=== PATIENT | female | born 1960 | race Caucasian/White ===

== ENCOUNTER → 2018-11-18 09:40 | Outpatient (REF) | payer OTHER, SELFPAY | LOC: LAB 09:40 | PROVIDERS: PCP Nurse Practitioner Family; Visit Provider Nurse Practitioner Family | DX: R31.9 Hematuria, unspecified (principal); R10.9 Unspecified abdominal pain | CPT/HCPCS: 87086 ==

== ENCOUNTER → 2020-10-31 09:04 | Outpatient (CLI) | payer BC, SELFPAY ==
--- NOTE | 2020-10-31 | DI.US.S_ITS ---
PROCEDURE: US RENAL COMPLETE INDICATIONS: FLANK PAIN TECHNIQUE: Real-time scanning was performed of the kidneys and bladder, with image documentation. COMPARISON: None. FINDINGS: Kidneys: Kidneys are normal in size. Right kidney measures 10.4 cm long; left kidney measures 11.7 cm long. Right renal cortical thickness is 1.5 cm; left renal cortical thickness is 1.5 cm. Renal cortical echotexture is normal. No hydronephrosis or nephrolithiasis. No suspicious solid mass lesions. Bladder: Pre-void bladder volume is 332 mL. Post-void residual is 26 mL. Pre-void images demonstrate no intraluminal masses or stones. On pre-void images, both ureteral jets are noted with color Doppler interrogation. (Of note, ureteral jets may not be detectable in up to 25% of cases due to insufficient differences in specific gravity between ureteral and bladder urine). Miscellaneous: No free pelvic fluid. This study is highly limited by body habitus and bowel gas. IMPRESSION: No hydronephrosis or shadowing stones can be seen. Mild to moderate postvoid residual, 26 cc. Dictated by: Kuldip Holder M.D. on 10/31/2020 at 8:49 Approved by: Kuldip Hloder M.D. on 10/31/2020 at 8:50
== END ==
PROVIDERS: PCP Nurse Practitioner Family; Referring Provider Nurse Practitioner Family; Visit Provider Nurse Practitioner Family
DX: R10.9 Unspecified abdominal pain (principal)
CPT/HCPCS: 76770

== ENCOUNTER 2021-02-09 19:17 | Inpatient (IN) | payer BC, SELFPAY ==
[2021-02-09] VITALS (15 sets, daily range): BP systolic 91–142; BP diastolic 50–78; PULSE 90–113; RESP 20–24; TEMP 37.2–38.8; O2SAT 92–98; BMI 40.4; BMI 41.2
--- NOTE | 2021-02-09 19:25 | DI.US.S_ITS ---
PROCEDURE: US ABDOMEN LIMITED INDICATIONS: SEVERE EPIGASTRIC AND RIGHT UPPER QUADRANT PAIN TECHNIQUE: Real-time focused scanning was performed of the right upper quadrant, with image documentation. COMPARISON: None. FINDINGS: The liver is increased in echogenicity consistent with fatty infiltration with a few hypoechoic indistinct regions along the gallbladder fossa compatible with focal fatty sparing. The largest region measures up to 2.8 cm without internal vascularity on color Doppler interrogation. Gallbladder is distended with 2 small mobile stones. No wall thickening or pericholecystic fluid. No intra or extrahepatic biliary ductal dilatation. The visualized common bile duct measures up to 0.5 cm. Evaluation of the pancreas is limited by bowel gas. IMPRESSION: 1. Cholelithiasis and distention of the gallbladder without wall thickening, pericholecystic fluid, or sonographic Christina's sign to suggest cholecystitis. 2. Increased hepatic echogenicity compatible with steatosis with probable areas of focal sparing along the gallbladder fossa. Dictated by: Leighton Mackenzie M.D. on 02/09/2021 at 20:49 Approved by: Leighton Mackenzie M.D. on 02/09/2021 at 20:54
--- NOTE | 2021-02-09 19:25 | DI.RAD.S_ITS ---
PROCEDURE: XR CHEST 1V INDICATIONS: fever, sepsis TECHNIQUE: One view of the chest was acquired. COMPARISON: [facility], , CHEST 2 VIEW, 06/21/2017, 11:08. FINDINGS: Surgical changes and devices: None. Lungs and pleura: There are confluent left perihilar airspace opacities consistent with consolidation. Right lung is clear. No pleural effusions or pneumothorax. Mediastinum: Mediastinal contours appear normal. Heart size is normal. Bones and chest wall: No suspicious bony lesions. Overlying soft tissues appear unremarkable. IMPRESSION: 1. Left perihilar consolidation consistent with pneumonia given clinical history. Dictated by: Leighton Mackenzie M.D. on 02/09/2021 at 20:54 Approved by: Leighton Mackenzie M.D. on 02/09/2021 at 20:55
[2021-02-09] MEDS: LACTATED RINGERS 541.94 ML IV (19:56)
[2021-02-09 19:58] LABS: Add Manual Diff / Slide Review NO; Basophils Absolute Auto 100 /uL (0-100); Basophils Percent Auto 0.4 % (0-2); Eosinophils Absolute Auto 0 /uL (0-450); Hematocrit 35.1 % (36-46); Hemoglobin 11.8 g/dL (12.0-16.0); Lymphocytes Absolute Auto 700 /uL (1100-4500); Mean Corpuscular HGB Conc 33.6 % (30-36); Mean Corpuscular Volume 89.1 fL (80-100); Monocytes Absolute Auto 700 /uL (0-900); Neutrophils Absolute Auto 16100 /uL (1500-7000); Neutrophils Percent Auto 91.6 % (50-75); Platelet Count 223 X10^3/uL (150-400); Red Blood Cell Count 3.94 X10^6/uL (4.0-5.2); Red Cell Distribution Width 13.3 % (11.6-14.8); White Blood Cell Count 17.5 X10^3/uL (4.5-11.0)
[2021-02-09 20:07] LABS: Lactate (Lactic Acid) 1.1 mmol/L (0.7-2.1)
[2021-02-09 20:09] LABS: Alanine Aminotransferase 25 IU/L (<35); Albumin 3.6 g/dL (3.5-5.0); Albumin Globulin Ratio 1.2 (1.0-2.8); Alkaline Phosphatase 95 U/L (38-126); Aspartate Aminotransferase 25 IU/L (14-36); BUN Creatinine Ratio 17.9 (6-22); Bilirubin Total 0.5 mg/dL (0.2-1.3); Blood Urea Nitrogen 22 mg/dL (7-17); Calcium 8.9 mg/dL (8.4-10.2); Carbon Dioxide 27 mmol/L (22-32); Chloride 100 mmol/L (98-107); Creatine Kinase 133 U/L (30-135); Estimated Glomerular Filt Rate 44.7 mL/min (>60); Globulin 3.1 g/dL (1.7-4.1); Glucose 150 mg/dL (70-100); HEMOLYSIS < 15 (0-50); Lipase 23 U/L (23-300); Potassium 3.4 mmol/L (3.4-5.1); Sodium 135 mmol/L (137-145); Total Protein 6.7 g/dL (6.3-8.2)
--- NOTE | 2021-02-09 20:10 | ED_ITS ---
HPI - Fever General Chief Complaint: Fever Stated Complaint: states, fever Time Seen by Provider: 02/09/21 19:22 Source: patient Mode of arrival: Wheelchair Limitations: no limitations History of Present Illness HPI Narrative: 60-year-old female former smoker with history of hypertension presents with family and a chief complaint of a few days of increasing fever, chills and right-sided pain. She states she had a temporal measurement of 105 at home and in would oral temp of 101?. She took Tylenol about 1 hour ago. She has had nausea and vomiting but denies any constipation, diarrhea for urinary complaints such as dysuria, frequency or urgency. She states her pain is worse when she moves and improves with rest. She denies any obvious provocation with eating. She denies any radiation of her pain. She is not dizzy nor weak or lightheaded. She denies any dysuria, frequency or urgency. She denies any exposure to persons with known to have COVID. Related Data Home Medications Medication Instructions Recorded Confirmed VITAMIN D (Vitamin D3) 1,000 units PO #0 tab 08/17/16 ascorbic acid (vitamin C) 500 mg PO QDAY #0 tab 08/17/16 ibuprofen [Advil] 200 mg PO Q4HP PRN #0 tab 08/17/16 lisinopril 10 mg PO QDAY #30 tab 08/17/16 Previous Rx's Medication Instructions Recorded cyclobenzaprine 10 mg PO TIDP PRN #21 tab 08/17/16 naproxen [Naprosyn] 500 mg PO BIDCC #30 tab 08/17/16 Allergies Allergy/AdvReac Type Severity Reaction Status Date / Time Penicillins [PENICILLINS] Allergy Unknown Unverified 02/16/18 11:48 Review of Systems Constitutional Constitutional: Reports chills, Denies fatigue, Reports fever(s), Denies frequent falls, Denies lethargy and Denies weakness Eyes Eyes: Denies change in vision, Denies eye discharge, Denies irritation and Denies loss of vision ENT Ears, Nose, Mouth, and Throat: Denies change in voice, Denies dizziness, Denies neck pain, Denies sore throat and Denies throat swelling Cardiovascular Cardiovascular: Denies chest pain, Denies irregular heart rhythm, Denies lightheadedness, Denies palpitations, Denies dyspnea, Denies dyspnea on exertion and Denies orthopnea Respiratory Respiratory: Denies cough, Denies dyspnea, Denies dyspnea on exertion and Denies wheezing Gastrointestinal Gastrointestinal: Reports abdominal pain, Denies change in bowel habits, Denies diarrhea, Reports nausea and Reports vomiting Musculoskeletal Musculoskeletal: Denies neck pain and Denies numbness Integumentary/Breasts Skin/Breast: Denies pruritus, Denies erythema, Denies rash and Denies wounds Neurologic Neurologic: Denies behavioral changes, Denies confusion, Denies dizziness, Denies frequent falls, Denies loss of vision, Denies numbness and Denies weakness Psychiatric Psychiatric: Denies anxiety, Denies behavioral changes, Denies confusion, Denies depression, Denies homicidal ideation and Denies suicidal ideation Endocrine Endocrine: Denies fatigue, Denies flushing and Denies palpitations Hematologic/Lymphatic Hematologic/Lymphatic: Denies easy bruising Allergic/Immunologic Allergic/Immunologic: Denies urticaria, Denies throat swelling and Denies wheezing Patient History Social History household members: family Smoking Status: Former smoker Smoking Status: Former smoker alcohol intake frequency: 0-2 drinks per day Substance Use Type: does not use Exam Narrative Exam Narrative: GENERAL: [60] year old patient appears stated age. Well- nourished, well-developed patient, in obvious distress, significant pain in the right upper quadrant. HEAD: Atraumatic. Normocephalic. EYES: Pupils equal round and reactive. Extraocular motions intact. No scleral icterus. No injection or drainage. ENT: Nose without bleeding, purulent drainage. Throat without erythema, tonsillar hypertrophy or exudate. Airway patent. NECK: Trachea midline. Non tender CARDIOVASCULAR: Tachycardic, but regular rhythm without murmurs, gallops, or rubs. RESPIRATORY: Clear to auscultation. Breath sounds equal bilaterally. No wheezes, rales, or rhonchi. GASTROINTESTINAL: Abdomen soft, severe pain in epigastrum and RUQ, nondistended. EXTREMITIES: No edema or joint tenderness. BACK: Nontender without deformity or crepitance. No flank tenderness. NEURO: AOx3. SKIN: No rash or erythema of visible areas Initial Vital Signs Initial Vital Signs: Vital Signs Temperature 99.0 F 02/09/21 19:25 Pulse Rate 113 H 02/09/21 19:25 Respiratory Rate 24 02/09/21 19:25 Blood Pressure 135/61 02/09/21 19:25 Pulse Oximetry 93 02/09/21 19:25 Course Orders Ordered: ED Orders 02/09/21 19:25 US abdomen limited Stat XR chest 1V Stat Urinalysis and Microscopic Stat EKG-12 Lead Stat 02/09/21 19:30 COVID19 - ADMIT (CARDIOLOGY TECHNICIAN swab/PCR) Stat 02/09/21 19:45 Complete Blood Count AUTO DIFF Stat Comprehensive Metabolic Panel Stat Lactate (Lactic Acid) Stat Lipase Stat Procalcitonin Stat Troponin & CK Cardiac Panel Stat 02/09/21 20:21 CT abdomen pelvis w con Stat 02/09/21 20:30 Blood Culture Stat Acetaminophen (Acetaminophen 325 Mg Tablet) 650 mg PO Q6HR PRN PRN Reason: Fever/Mild Pain (1-3) Hydrocodone Bitart/Acetaminophen (Hydrocodone/Acet 5/325 Tablet) 2 tab PO Q4HR PRN PRN Reason: Pain, Severe (7-10) Al Hydrox/Mg Hydrox/Simethicone (Mag Hydrox/Alum/Simeth 30 Ml Udc) 30 ml PO Q6HR PRN PRN Reason: Dyspepsia Enoxaparin Sodium (Enoxaparin 40 Mg/0.4 Ml Syringe) 40 mg SUBCUT DAILY [facility] Lactated Ringer's (Lactated Ringers) 1,000 mls @ 150 mls/hr IV CONT [facility] Ceftriaxone Sodium/Dextrose (Rocephin) 1 gm in 50 mls @ 100 mls/hr IV Q24H [facility] Azithromycin 500 mg/ Dextrose 250 mls @ 250 mls/hr IV Q24H [facility] Lisinopril (Lisinopril 10 Mg Tablet) 10 mg PO DAILY [facility] Morphine Sulfate (Morphine 2 Mg/Ml Inj) 2 mg IV Q4HR PRN PRN Reason: Pain, Moderate (4-6) Naloxone HCl (Naloxone 0.4 Mg/Ml Vial) 0.2 mg IV Q2MIN PRN PRN Reason: Opiate Reversal Ondansetron HCl (Ondansetron 4 Mg/2 Ml Inj) 4 mg IV Q8HR PRN PRN Reason: Nausea And Vomiting Discontinued Medications Lactated Ringer's (Lactated Ringers) 1,625.82 mls @ 541.94 mls/hr 30 ml/kg infuse over 3 hr (1625.82 ml) IV NOW ONE Stop: 02/09/21 22:24 Last Admin: 02/09/21 19:56 Dose: 541.94 mls/hr Documented by: ALEJANDRA Levofloxacin (Levaquin) 750 mg in 150 mls @ 100 mls/hr IV NOW ONE Stop: 02/09/21 21:33 Last Admin: 02/09/21 21:51 Dose: 100 mls/hr Documented by: KAUSHAL Metronidazole (Flagyl) 500 mg in 100 mls @ 100 mls/hr IV NOW ONE Stop: 02/09/21 21:09 Last Infusion: 02/09/21 21:48 Dose: 0 mls/hr Documented by: Admin: 02/09/21 20:32 Dose: 100 mls/hr Documented by: OLEG Vital Signs Vital signs: Vital Signs - 8 hr 02/09/21 19:25 02/09/21 19:34 02/09/21 20:00 Temperature 99.0 F Pulse Rate 113 H 99 H 97 H Respiratory Rate 24 Blood Pressure 135/61 Pulse Oximetry 93 92 94 02/09/21 20:30 02/09/21 20:53 02/09/21 21:00 Temperature Pulse Rate 93 H 92 H 93 H Respiratory Rate Blood Pressure 107/54 L 91/50 L Pulse Oximetry 95 96 97 02/09/21 21:10 02/09/21 21:13 02/09/21 21:30 Temperature Pulse Rate 90 90 95 H Respiratory Rate 20 Blood Pressure 103/52 L 110/58 L 118/78 Pulse Oximetry 97 98 97 02/09/21 21:57 02/09/21 22:00 02/09/21 22:25 Temperature 100.6 F H 100.2 F H Pulse Rate 90 Respiratory Rate Blood Pressure 123/70 Pulse Oximetry 97 02/09/21 22:30 Temperature Pulse Rate 94 H Respiratory Rate Blood Pressure 142/68 H Pulse Oximetry 97 MDM - Fever Lab Data Result diagrams: 02/09/21 19:45 02/09/21 19:45 Labs: Lab Results 02/09/21 02/09/21 02/09/21 Range/Units 19:30 19:45 19:45 WBC 17.5 H (4.5-11.0) X10^3/uL RBC 3.94 L (4.0-5.2) X10^6/uL Hgb 11.8 L (12.0-16.0) g/dL Hct 35.1 L (36-46) % MCV 89.1 (80-100) fL MCH 30.0 (26-34) PG MCHC 33.6 (30-36) % RDW 13.3 (11.6-14.8) % Plt Count 223 (150-400) X10^3/uL Neut % (Auto) 91.6 H (50-75) % Lymph % (Auto) 4.0 L (25-40) % Jones % (Auto) 4.0 (3-14) % Eos % (Auto) 0.0 L (2-4) % Baso % (Auto) 0.4 (0-2) % Neut # (Auto) 93745 H (6089-3815) /uL Lymph # (Auto) 700 L (5073-9423) /uL Jones # (Auto) 700 (0-900) /uL Eos # (Auto) 0 (0-450) /uL Baso # (Auto) 100 (0-100) /uL Sodium 135 L (137-145) mmol/L Potassium 3.4 (3.4-5.1) mmol/L Chloride 100 (98-107) mmol/L Carbon Dioxide 27 (22-32) mmol/L BUN 22 H (7-17) mg/dL Creatinine 1.23 H (0.52-1.04) mg/dL Estimated GFR 44.7 L (>60) mL/min BUN/Creatinine Ratio 17.9 (6-22) Glucose 150 H (70-100) mg/dL Lactate (0.7-2.1) mmol/L Calcium 8.9 (8.4-10.2) mg/dL Total Bilirubin 0.5 (0.2-1.3) mg/dL AST 25 (14-36) IU/L ALT 25 (<35) IU/L Alkaline Phosphatase 95 (38-126) U/L Total Creatine Kinase 133 (30-135) U/L CK-MB (CK-2) < 0.22 (<2.37) ng/mL CK-MB (CK-2) Rel Index 0.2 L (1.5-5.0) % Troponin I < 0.012 (0.01-0.034) ng/mL Total Protein 6.7 (6.3-8.2) g/dL Albumin 3.6 (3.5-5.0) g/dL Globulin 3.1 (1.7-4.1) g/dL Albumin/Globulin Ratio 1.2 (1.0-2.8) Lipase 23 (23-300) U/L Procalcitonin 4.97 H (<0.5) ng/mL Urine Color Urine Appearance Urine pH (4.5-8.0) Ur Specific Pierce (1.000-1.035) Urine Protein (Negative) Urine Glucose (UA) (Negative) g/dL Urine Ketones (NEGATIVE) Urine Occult Blood (Negative) Urine Nitrate (Negative) Urine Bilirubin (NEGATIVE) Urine Urobilinogen (0.2) E.U./dL Ur Leukocyte Esterase (NEGATIVE) Urine RBC (0-5/HPF) Urine WBC (0-5/HPF) Ur Squamous Epith Cells (0-5/HPF) Amorphous Sediment Urine Bacteria (None) Hyaline Casts (None) Urine Mucus (Negative) Ur Culture Indicated? SARS-CoV-2 (PCR) Negative (Negative) 02/09/21 02/09/21 Range/Units 19:45 21:45 WBC (4.5-11.0) X10^3/uL RBC (4.0-5.2) X10^6/uL Hgb (12.0-16.0) g/dL Hct (36-46) % MCV (80-100) fL MCH (26-34) PG MCHC (30-36) % RDW (11.6-14.8) % Plt Count (150-400) X10^3/uL Neut % (Auto) (50-75) % Lymph % (Auto) (25-40) % Jones % (Auto) (3-14) % Eos % (Auto) (2-4) % Baso % (Auto) (0-2) % Neut # (Auto) (9709-2770) /uL Lymph # (Auto) (1755-1596) /uL Jones # (Auto) (0-900) /uL Eos # (Auto) (0-450) /uL Baso # (Auto) (0-100) /uL Sodium (137-145) mmol/L Potassium (3.4-5.1) mmol/L Chloride (98-107) mmol/L Carbon Dioxide (22-32) mmol/L BUN (7-17) mg/dL Creatinine (0.52-1.04) mg/dL Estimated GFR (>60) mL/min BUN/Creatinine Ratio (6-22) Glucose (70-100) mg/dL Lactate 1.1 (0.7-2.1) mmol/L Calcium (8.4-10.2) mg/dL Total Bilirubin (0.2-1.3) mg/dL AST (14-36) IU/L ALT (<35) IU/L Alkaline Phosphatase (38-126) U/L Total Creatine Kinase (30-135) U/L CK-MB (CK-2) (<2.37) ng/mL CK-MB (CK-2) Rel Index (1.5-5.0) % Troponin I (0.01-0.034) ng/mL Total Protein (6.3-8.2) g/dL Albumin (3.5-5.0) g/dL Globulin (1.7-4.1) g/dL Albumin/Globulin Ratio (1.0-2.8) Lipase (23-300) U/L Procalcitonin (<0.5) ng/mL Urine Color Yellow Urine Appearance Cloudy Urine pH 6.5 (4.5-8.0) Ur Specific Pierce <=1.005 (1.000-1.035) Urine Protein 2+ H (Negative) Urine Glucose (UA) Negative (Negative) g/dL Urine Ketones Negative (NEGATIVE) Urine Occult Blood 3+ H (Negative) Urine Nitrate Negative (Negative) Urine Bilirubin Negative (NEGATIVE) Urine Urobilinogen 1.0 (0.2) E.U./dL Ur Leukocyte Esterase Trace H (NEGATIVE) Urine RBC 1-5/hpf (0-5/HPF) Urine WBC 1-5/hpf (0-5/HPF) Ur Squamous Epith Cells 5-10 /hpf H (0-5/HPF) Amorphous Sediment 2+ Urine Bacteria Many (>30) H (None) Hyaline Casts 0-1/lpf (None) Urine Mucus 1+ H (Negative) Ur Culture Indicated? Cult not indicated SARS-CoV-2 (PCR) (Negative) Urine Dip Bedside Urine Glucose Negative Bedside Urine Bilirubin - Negative Bedside Urine Ketone - Negative Urine Specific Pierce 1.010 Bedside Urine Occult Blood +++ Bedside Urine pH 6 Bedside Urine Protein + 30 Bedside Urine Urobilinogen - Negative Bedside Urine Nitrite - Negative Bedside Urine Leukocytes +/- 15 Esterase Imaging Data Chest x-ray: Attestation: I personally reviewed and interpreted this imaging study as follows: My Impression: LLL pneumonia Radiologist's Impression: Lisa Waite 60 F [address] [id number] ReportSigned Patient: Lisa Waite KMR#: [id number]: 1960cct:[id number]/Sex: 60 / FDate of Service: 02/09/21Loc: EDAccession Number: [id number] Procedure: XR chest 1V Ordering Provider: Aldair Alarcon D.O. PROCEDURE: XR CHEST 1V INDICATIONS: fever, sepsis TECHNIQUE: One view of the chest was acquired. COMPARISON: [facility], , CHEST 2 VIEW, 06/21/2017, 11:08. FINDINGS: Surgical changes and devices: None. Lungs and pleura: There are confluent left perihilar airspace opacities consistent with consolidation. Right lung is clear. No pleural effusions or pneumothorax. Mediastinum: Mediastinal contours appear normal. Heart size is normal. Bones and chest wall: No suspicious bony lesions. Overlying soft tissues appear unremarkable. IMPRESSION: 1. Left perihilar consolidation consistent with pneumonia given clinical history. Dictated by: Leighton Mackenzie M.D. on 02/09/2021 at 20:54 Approved by: Leighton Mackenzie M.D. on 02/09/2021 at 20:55 CT scan - abdomen/pelvis: Radiologist's Impression: Chart Viewer Diagnostics DATE TYPE STATUS REF RANGE/AUTHOR Hx Today 20:21 Leighton Mackenzie Today 19:25 Leighton Mackenzie Today 19:25 Leighton Mackenzie 10/31/20 00:00 GloryKuldip Carla K 60, F0 1960 ADM IN, AC 205 -1 162.56cm 108.9kg BMI: 41.2kg/m? Search Chart No Data to Display NonFormulary Not Included in Conflicts ONSET Today 22:45 Lisa Waite K 60 F 1960 [facility] [place] [id number] Scan ReportSigned Patient: Lisa Waite KMR#: [id number]: 1960cct:[id number]/Sex: 60 / FDate of Service: 02/09/21Loc: EDAccession Number: [id number] Procedure: CT abdomen pelvis w con Ordering Provider: Aldair Alarcon D.O. PROCEDURE: CT ABDOMEN PELVIS W CON INDICATIONS: severe R sided abdominal pain, septic, unremarkable US TECHNIQUE: After the administration of intravenous contrast, 5 mm thick sections acquired from the diaphragm to the symphysis. 5 mm coronal and sagittal reformats were acquired. For radiation dose reduction, the following was used: automated exposure control, adjustment of mA and/or kV according to patient size. COMPARISON: [facility], CT, KIDNEY/ URETER/BLADDER, 01/26/2007, 8:07. [facility], US, US ABDOMEN LIMITED, 02/09/2021, 20:04. FINDINGS: Image quality: Excellent. ABDOMEN: Lung bases: There is a partially visualized region of consolidation within the left lingula. Heart size is normal. Solid organs: There is hypoattenuation of the liver consistent with fatty infiltration with areas of relative sparing along the gallbladder fossa. A small dependent calcified gallstone is demonstrated in the gallbladder without associated wall thickening or pericholecystic fluid. Biliary system is non-dilated. Pancreas enhances normally. No peripancreatic fat stranding or fluid collections. No pancreatic duct dilatation. The spleen is normal in size. There is a small indeterminate right adrenal nodule measuring up to 1.5 cm. This appears increased in prominence compared to the prior CT although this may reflect differences in slice acquisition and technique. Kidneys demonstrate no hydronephrosis. There is mild nonspecific perinephric stranding bilaterally without evidence of a striated nephrogram. No perinephric or intrarenal fluid collections. Peritoneum and bowel: Bowel loops demonstrate normal wall thickness and caliber. The appendix is normal in appearance. There is colonic diverticulosis without acute diverticulitis. No free fluid or air. Nodes and vessels: No retroperitoneal or mesenteric adenopathy by size criteria. Aorta and inferior vena cava are normal in size. Miscellaneous: No ventral hernias. PELVIS: Genitourinary: Bladder wall thickness is normal. Miscellaneous: No inguinal hernias or adenopathy. Bones: No suspicious bony lesions. There is a nondisplaced left pars defect at L5. No spondylolisthesis. No vertebral body compression fractures. IMPRESSION: 1. Cholelithiasis without CT evidence of cholecystitis. 2. Hepatic steatosis with areas of relative sparing along the gallbladder fossa. 3. Mild nonspecific perinephric stranding bilaterally. No striated nephrograms to definitely suggest pyelonephritis. Recommend correlation clinically. 4. Small right adrenal nodule appears slightly increased in size compared to the prior study. The findings are indeterminate but suggestive of an adenoma. If clinically indicated, further evaluation may be obtained with an adrenal protocol MRI or CT. Dictated by: Leighton Mackenzie M.D. on 02/09/2021 at 21:15 Approved by: Leighton Mackenzie M.D. on 02/09/2021 at 21:22 [facility] Narrative Medical decision making narrative: 60-year-old female progressively more ill over 3 days with fever, chills and right flank pain. Fluids ordered at 30 cc/kilogram and antibiotics ordered early, though after blood cultures obtained. Given severe right upper quadrant pain initial imaging was an ultrasound an antibiotic selection was based on the possibility of cholangitis, however his labs and imaging would demonstrate her gallbladder does not seem to be a problem and pneumonia in urine or the apparent source of her sepsis. Patient has improved with fluids as stated and will require hospitalization full ongoing treatment Discharge Plan Departure Patient Disposition: Admitted As Inpatient Clinical Impression: Pyelonephritis Sepsis Qualifiers: Sepsis type: sepsis due to unspecified organism Sepsis acute organ dysfunction status: without acute organ dysfunction Qualified Code(s): A41.9 - Sepsis, unspecified organism Pneumonia Qualifiers: Pneumonia type: due to unspecified organism Laterality: left Lung location: lower lobe of lung Qualified Code(s): J18.9 - Pneumonia, unspecified organism Admit Date/Time: 02/09/21 22:34 Admit Provider: Glenroy Pagan
[2021-02-09 20:20] LABS: Troponin I < 0.012 ng/mL (0.01-0.034)
--- NOTE | 2021-02-09 20:21 | DI.CT.S_ITS ---
PROCEDURE: CT ABDOMEN PELVIS W CON INDICATIONS: severe R sided abdominal pain, septic, unremarkable US TECHNIQUE: After the administration of intravenous contrast, 5 mm thick sections acquired from the diaphragm to the symphysis. 5 mm coronal and sagittal reformats were acquired. For radiation dose reduction, the following was used: automated exposure control, adjustment of mA and/or kV according to patient size. COMPARISON: [facility], CT, KIDNEY/ URETER/BLADDER, 01/26/2007, 8:07. [facility], US, US ABDOMEN LIMITED, 02/09/2021, 20:04. FINDINGS: Image quality: Excellent. ABDOMEN: Lung bases: There is a partially visualized region of consolidation within the left lingula. Heart size is normal. Solid organs: There is hypoattenuation of the liver consistent with fatty infiltration with areas of relative sparing along the gallbladder fossa. A small dependent calcified gallstone is demonstrated in the gallbladder without associated wall thickening or pericholecystic fluid. Biliary system is non-dilated. Pancreas enhances normally. No peripancreatic fat stranding or fluid collections. No pancreatic duct dilatation. The spleen is normal in size. There is a small indeterminate right adrenal nodule measuring up to 1.5 cm. This appears increased in prominence compared to the prior CT although this may reflect differences in slice acquisition and technique. Kidneys demonstrate no hydronephrosis. There is mild nonspecific perinephric stranding bilaterally without evidence of a striated nephrogram. No perinephric or intrarenal fluid collections. Peritoneum and bowel: Bowel loops demonstrate normal wall thickness and caliber. The appendix is normal in appearance. There is colonic diverticulosis without acute diverticulitis. No free fluid or air. Nodes and vessels: No retroperitoneal or mesenteric adenopathy by size criteria. Aorta and inferior vena cava are normal in size. Miscellaneous: No ventral hernias. PELVIS: Genitourinary: Bladder wall thickness is normal. Miscellaneous: No inguinal hernias or adenopathy. Bones: No suspicious bony lesions. There is a nondisplaced left pars defect at L5. No spondylolisthesis. No vertebral body compression fractures. IMPRESSION: 1. Cholelithiasis without CT evidence of cholecystitis. 2. Hepatic steatosis with areas of relative sparing along the gallbladder fossa. 3. Mild nonspecific perinephric stranding bilaterally. No striated nephrograms to definitely suggest pyelonephritis. Recommend correlation clinically. 4. Small right adrenal nodule appears slightly increased in size compared to the prior study. The findings are indeterminate but suggestive of an adenoma. If clinically indicated, further evaluation may be obtained with an adrenal protocol MRI or CT. Dictated by: Leighton Mackenzie M.D. on 02/09/2021 at 21:15 Approved by: Leighton Mackenzie M.D. on 02/09/2021 at 21:22
[2021-02-09 20:25] LABS: CKMB % Relative Index 0.2 % (1.5-5.0); Creatine Kinase MB < 0.22 ng/mL (<2.37); Procalcitonin 4.97 ng/mL (<0.5)
[2021-02-09 20:31] LABS: COVID19 - ADMIT (NP swab/PCR) Negative (Negative)
[2021-02-09] MEDS: metroNIDAZOLE 500 MG/100 ML PIGGYBACK 100 MG IV (20:32)
[2021-02-09] MEDS: levoFLOXacin 750 MG/150 ML PIGGYBACK 100 MG IV (21:51)
[2021-02-09 22:44] LABS: Appearance Urine UA CLOUDY; Bilirubin Urine UA NEGATIVE (NEGATIVE); Color Urine UA YELLOW; Glucose Urine UA NEGATIVE (Negative); Ketones Urine UA NEGATIVE (NEGATIVE); Leukocyte Esterase Urine UA TRACE (NEGATIVE); Nitrite Urine UA NEGATIVE (Negative); Occult Blood Urine UA 3+ (Negative); Protein Urine UA 2+ (Negative); Specific Gravity Urine UA <=1.005 (1.000-1.035)
[2021-02-09 23:05] LABS: pH Urine UA 6.5 (4.5-8.0)
[2021-02-09 23:06] LABS: RBC Urine 1-5/HPF (0-5/HPF); WBC Urine 1-5/HPF (0-5/HPF)
[2021-02-09 23:07] LABS: Amorphous Sediment Urine 2+; Bacteria Urine Many (>30); Hyaline Casts Urine 0-1/LPF; Mucus Urine 1+ (Negative); Squamous Epithelial Cell Urine 5-10 /HPF (0-5/HPF)
[2021-02-09 23:08] LABS: Culture Indicated Urine Cult Not Indicated
[2021-02-09] MEDS: ONDANSETRON 4 MG/2 ML INJ IV (23:50)
[2021-02-09] MEDS: ACETAMINOPHEN 325 MG TABLET 650 MG PO (23:54)
[2021-02-09] MEDS: LACTATED RINGERS 1,000 ML 150 ML IV (23:57)
[2021-02-10] VITALS (8 sets, daily range): BP systolic 98–127; BP diastolic 52–69; PULSE 91–110; RESP 17–24; TEMP 36.6–38.5; O2SAT 94–95
[2021-02-10] MEDS: CEFTRIAXONE 1 GM/50 ML FROZ.PIGGY IV ×2 (00:06→22:22)
[2021-02-10] MEDS: lisinopriL 10 MG TABLET PO (00:48)
[2021-02-10] MEDS: AZITHROMYCIN 500 MG in DEXTROSE 5% IN WATER 250 ML IV ×2 (01:05→23:28)
[2021-02-10] MEDS: ACETAMINOPHEN 325 MG TABLET 650 MG PO ×2 (06:06→11:20)
[2021-02-10 06:29] LABS: Alanine Aminotransferase 25 IU/L (<35); Albumin 3.5 g/dL (3.5-5.0); Albumin Globulin Ratio 1.1 (1.0-2.8); Alkaline Phosphatase 96 U/L (38-126); Aspartate Aminotransferase 30 IU/L (14-36); Bilirubin Total 0.4 mg/dL (0.2-1.3); Blood Urea Nitrogen 18 mg/dL (7-17); Calcium 8.7 mg/dL (8.4-10.2); Carbon Dioxide 28 mmol/L (22-32); Chloride 99 mmol/L (98-107); Globulin 3.1 g/dL (1.7-4.1); Glucose 133 mg/dL (70-100); HEMOLYSIS < 15 (0-50); Potassium 3.8 mmol/L (3.4-5.1); Sodium 134 mmol/L (137-145); Total Protein 6.6 g/dL (6.3-8.2)
[2021-02-10 06:40] LABS: Hematocrit 34.8 % (36-46); Hemoglobin 11.6 g/dL (12.0-16.0); Mean Corpuscular HGB Conc 33.4 % (30-36); Mean Corpuscular Volume 89.9 fL (80-100); Platelet Count 206 X10^3/uL (150-400); Red Blood Cell Count 3.86 X10^6/uL (4.0-5.2); Red Cell Distribution Width 13.3 % (11.6-14.8); White Blood Cell Count 17.8 X10^3/uL (4.5-11.0)
[2021-02-10 06:41] LABS: Add Manual Diff / Slide Review YES
[2021-02-10 06:53] LABS: Neutrophils Absolute Manual 16732 /uL (3000-5900); Total Cells Counted 100
[2021-02-10 06:54] LABS: RBC Morphology Normal Morphology
--- NOTE | 2021-02-10 08:27 | PM.HP.1 ---
History of Present Illness History of Present Illness Date Patient Seen: 02/10/21 Time Patient Seen: 08:30 Date of Onset of Symptoms: 02/06/21 Chief complaint: states, fever Narrative: Patient is a 60-year-old white female who presented last night to the emergency room for fever and flank pain. Patient overall started having fever but no other changes on . She otherwise was feeling well. She had no cough no runny nose no other change. Real symptoms. She had no burning with urination. No significant abdominal pain. Over the next 48 hours she had increasing right flank pain although she has this intermittent only for the last 2 years. Maybe it was slightly worse. Pain was all right flank no radiation constant. No other change. She had some nausea and vomiting which is what brought her to the emergency room. She does feels wiped out. With no other changes. She is fatigued but is not having any chest pain. She has not noticed any other significant change other than the fever. Patient has had no joint pain no rashes no headaches no visual symptoms. She has not been traveling. Really is been otherwise feeling well. She has no other complete change. Past medical history: Hypertension Past surgical history hysterectomy. Social history retired. Recently. Family history. Dad stroke in his 70s, mom with colon cancer and hypertension. Sister with diabetes. Brother of lung cancer. Patient History Family & Social History Social History: household members family Prior Living Arrangements House Safety & Behavioral: Feels Safe in Current Yes Environment Been Physically Hurt or No Threatened By a Person Suicidal Ideation Description None Suicide Plan Description No Plan Tobacco & Substance use: Smoking Status Former smoker alcohol intake frequency 0-2 drinks per day Substance Use Type does not use Meds Home Medications and Allergies Home Medications Medication Instructions Recorded Confirmed Type VITAMIN D (Vitamin D3) 1,000 units PO DAILY #0 tab 08/17/16 02/10/21 History ascorbic acid (vitamin C) 500 mg PO QDAY #0 tab 08/17/16 02/10/21 History ibuprofen [Advil] 200 mg PO Q4HP PRN #0 tab 08/17/16 02/10/21 History lisinopril 20 mg PO QDAY #30 tab 08/17/16 02/10/21 History hydrochlorothiazide 25 mg PO DAILY 02/10/21 02/10/21 History Allergies Allergy/AdvReac Type Severity Reaction Status Date / Time Penicillins [PENICILLINS] Allergy Unknown Unverified 02/16/18 11:48 Review of Systems Review of Systems ROS: Yes All systems reviewed with the patient and are negative except as otherwise documented Exam Vital Signs (past 8 hours): - 02/10/21 01:47 02/10/21 06:00 02/10/21 06:06 Temperature 99.4 F 101.3 F H 101.3 F H Pulse Rate 108 H Respiratory Rate 18 Blood Pressure 127/69 Oxygen Delivery Method Room Air Oxygen Flow Rate 0 Narrative Exam Narrative: Alert very fatigued female moving slowly in no acute distress. Skin without rash normal capillary refill. Mucous membranes moist. Neck without adenopathy. Lungs show some left upper wheeze but otherwise good air exchange eating pain change. Heart is regular rate and rhythm without murmur. Abdomen is soft is nontender no hepatosplenomegaly no masses. Extremities without cyanosis clubbing edema. Neurologic exam is nonfocal. Objective Labs Result Diagrams: 02/10/21 06:03 02/10/21 06:03 Labs: Laboratory Results - last 24 hr 02/09/21 02/09/21 02/09/21 19:30 19:45 19:45 WBC 17.5 H RBC 3.94 L Hgb 11.8 L Hct 35.1 L MCV 89.1 MCH 30.0 MCHC 33.6 RDW 13.3 Plt Count 223 Neut % (Auto) 91.6 H Lymph % (Auto) 4.0 L [place] % (Auto) 4.0 Eos % (Auto) 0.0 L Baso % (Auto) 0.4 Neut # (Auto) 86196 H Lymph # (Auto) 700 L [place] # (Auto) 700 Eos # (Auto) 0 Baso # (Auto) 100 Total Counted Seg Neutrophils % Band Neutrophils % Lymphocytes % (Manual) Monocytes % (Manual) Neutrophils # (Manual) RBC Morphology Sodium 135 L Potassium 3.4 Chloride 100 Carbon Dioxide 27 BUN 22 H Creatinine 1.23 H Estimated GFR 44.7 L BUN/Creatinine Ratio 17.9 Glucose 150 H Lactate Calcium 8.9 Total Bilirubin 0.5 AST 25 ALT 25 Alkaline Phosphatase 95 Total Creatine Kinase 133 CK-MB (CK-2) < 0.22 CK-MB (CK-2) Rel Index 0.2 L Troponin I < 0.012 Total Protein 6.7 Albumin 3.6 Globulin 3.1 Albumin/Globulin Ratio 1.2 Lipase 23 Procalcitonin 4.97 H Urine Color Urine Appearance Urine pH Ur Specific [place] Urine Protein Urine Glucose (UA) Urine Ketones Urine Occult Blood Urine Nitrate Urine Bilirubin Urine Urobilinogen Ur Leukocyte Esterase Urine RBC Urine WBC Ur Squamous Epith Cells Amorphous Sediment Urine Bacteria Hyaline Casts Urine Mucus Ur Culture Indicated? SARS-CoV-2 (PCR) Negative 02/09/21 02/09/21 02/10/21 19:45 21:45 06:03 WBC 17.8 H RBC 3.86 L Hgb 11.6 L Hct 34.8 L MCV 89.9 MCH 30.0 MCHC 33.4 RDW 13.3 Plt Count 206 Neut % (Auto) Not Reportable Lymph % (Auto) Not Reportable [place] % (Auto) Not Reportable Eos % (Auto) Not Reportable Baso % (Auto) Not Reportable Neut # (Auto) Lymph # (Auto) Not Reportable [place] # (Auto) Not Reportable Eos # (Auto) Baso # (Auto) Not Reportable Total Counted 100 Seg Neutrophils % 88.0 H Band Neutrophils % 6.0 Lymphocytes % (Manual) 4.0 L Monocytes % (Manual) 2.0 Neutrophils # (Manual) 17991 H RBC Morphology Normal morphology Sodium Potassium Chloride Carbon Dioxide BUN Creatinine Estimated GFR BUN/Creatinine Ratio Glucose Lactate 1.1 Calcium Total Bilirubin AST ALT Alkaline Phosphatase Total Creatine Kinase CK-MB (CK-2) CK-MB (CK-2) Rel Index Troponin I Total Protein Albumin Globulin Albumin/Globulin Ratio Lipase Procalcitonin Urine Color Yellow Urine Appearance Cloudy Urine pH 6.5 Ur Specific [place] <=1.005 Urine Protein 2+ H Urine Glucose (UA) Negative Urine Ketones Negative Urine Occult Blood 3+ H Urine Nitrate Negative Urine Bilirubin Negative Urine Urobilinogen 1.0 Ur Leukocyte Esterase Trace H Urine RBC 1-5/hpf Urine WBC 1-5/hpf Ur Squamous Epith Cells 5-10 /hpf H Amorphous Sediment 2+ Urine Bacteria Many (>30) H Hyaline Casts 0-1/lpf Urine Mucus 1+ H Ur Culture Indicated? Cult not indicated SARS-CoV-2 (PCR) 02/10/21 06:03 WBC RBC Hgb Hct MCV MCH MCHC RDW Plt Count Neut % (Auto) Lymph % (Auto) [place] % (Auto) Eos % (Auto) Baso % (Auto) Neut # (Auto) Lymph # (Auto) [place] # (Auto) Eos # (Auto) Baso # (Auto) Total Counted Seg Neutrophils % Band Neutrophils % Lymphocytes % (Manual) Monocytes % (Manual) Neutrophils # (Manual) RBC Morphology Sodium 134 L Potassium 3.8 Chloride 99 Carbon Dioxide 28 BUN 18 H Creatinine 1.20 H Estimated GFR 46.0 L BUN/Creatinine Ratio 15.0 Glucose 133 H Lactate Calcium 8.7 Total Bilirubin 0.4 AST 30 ALT 25 Alkaline Phosphatase 96 Total Creatine Kinase CK-MB (CK-2) CK-MB (CK-2) Rel Index Troponin I Total Protein 6.6 Albumin 3.5 Globulin 3.1 Albumin/Globulin Ratio 1.1 Lipase Procalcitonin Urine Color Urine Appearance Urine pH Ur Specific [place] Urine Protein Urine Glucose (UA) Urine Ketones Urine Occult Blood Urine Nitrate Urine Bilirubin Urine Urobilinogen Ur Leukocyte Esterase Urine RBC Urine WBC Ur Squamous Epith Cells Amorphous Sediment Urine Bacteria Hyaline Casts Urine Mucus Ur Culture Indicated? SARS-CoV-2 (PCR) Assessment & Plan Assessment & Plan narrative: Sepsis syndrome. Elevated pulse is low blood pressure positive procalcitonin and probable acute renal failure. Appears to be secondary to a combination of pyelonephritis and pneumonia. Unclear which is the dominant factor. On good coverage. Does not have any anaerobic coverage what to see how things progress. White count is not really significantly changed. Feeling slightly better clinically today. Will follow blood cultures and urine culture. Continue fluid hydration and re-evaluate. Pneumonia. As above. Left lower quadrant. Interestingly her only abnormality on exam is a left upper quadrant will have to see how things go. On antibiotic coverage which should be adequate. Will continue. Pyelonephritis. On CT scan shows abnormality with abnormality with urine. Will see what culture shows. On antibiotics. May need to adjust depending on results. But will proceed from there. Acute renal failure. Will continue hydration. Expect this to resolve as we improve infection. Dehydration. All part of infection. Seems to be slightly better will continue aggressive hydration through today. Will see what happens over the next 24 hours. Cholecystitis. Patient has evidence of cholecystitis. Does have right flank pain I do not think this is active and CT scan did not show any abnormality but will need did follow. Certainly if not responding will need to re-evaluate but normal exam today abdominal. Chronic right flank pain. Potentially could be secondary to her cholecystitis we will have to evaluate over the long run. Unclear at this time. I do not think this is adding to her issue. Nothing on CT scan that represents a chronic problem. Otherwise. Will follow. Code status full. DVT prophylaxis will make sure she is on Lovenox. GI prophylaxis I do not think we needed at this time will have to follow closely. Disposition. Expect several days until things turn around. Given her response. Is 40 minutes spent with patient and care. Quality VTE Deep Vein Thrombosis/Pulmonary Embolism Present on Admission: No
[2021-02-10] MEDS: ENOXAPARIN 40 MG/0.4 ML SYRINGE SUBCUT ×2 (09:42→20:52)
[2021-02-10] MEDS: LACTATED RINGERS 1,000 ML 150 ML IV ×2 (11:22→20:52)
--- NOTE | 2021-02-10 11:49 | CM.DANOTE ---
DCP: Case received, EMR reviewed and met with patient. Introduced self and role. Was able to obtain information from patient regarding her baseline activity status prior to hospitalization, as well as her current living situation. DCP assessment completed with information currently available. Patient is a 60 year old female who admitted yesterday evening to the care of the hospitalist team. PCP: Dr. Pagan. Payer: confirmed: Out of [facility]. Patient came to the hospital via private vehicle secondary to having weakness, fever and chillls. She holds current diagnosis of pneumonia, pyelonephritis, as well as cholelithiasis. Met with patient in her room. She was laying on the window seat, with oxygen. She had flat effect. Confirmed that she resides in [place] with her daughter, Shamika Waite, and her son as well. She did stated that she no longer drives, and uses a cane upon occasion. She did state that she no longer works at [employer], but did not expand on this. Patient was having some discomfort, and did not get any other further information. P: DCP to continue to follow closely to see if she needs any resources before discharging. She currently has no P.T. orders. Kelly Alfred RN/[facility] [employer]
--- NOTE | 2021-02-10 13:26 | PC.NURSE ---
Patient received. Appears lethargic and flushed, easily awakened A&OX4. Denies increase pain, reports 2/10 headache. Denies appetite for breakfast and lunch. Daughter at bedside brought in outside drinks and snacks, still with very little po intake. Temperature reassessed after PRN tylenol given 97.8. Voiding well, ambulating in the room independently. IVF LR running at 150ml/hr per orders. LS CTA, no rashes or edema noted. LBM 4/4. Complaining of uncomfortable bed. Requested new matress for patient.
[2021-02-11 00:02] VITALS: BP 112/64; PULSE 90; RESP 18; TEMP 37; O2SAT 93
[2021-02-11] MEDS: MORPHINE 2 MG/ML INJ IV (00:54)
--- NOTE | 2021-02-11 01:19 | PC.NURSE ---
patient is alert and oriented. Breath sounds diminished but CTA with RA sat of 93%. HRR. Denies nausea. BT hypoactive but patient states she is passing flatus. Denies dysuria, frequency or urgency with urination. Is up in room independently and denies weakness. Complains of 2/10 right flank dull pain and 4/10 pain in posterior left lower lung but initially declined offer of pain medication but later did request pain med and was medicated with Morphine after which patient back to bed and bed alarm activated for fall prevention. Refusing to wear SCD's so reminded to ankle wave when awake; verbalizes understanding.
[2021-02-11 05:13] VITALS: BP 118/64; PULSE 74; RESP 20; TEMP 36.9; O2SAT 95
[2021-02-11] MEDS: LACTATED RINGERS 1,000 ML 150 ML IV (05:22)
[2021-02-11 06:04] LABS: Basophils Absolute Auto 0 /uL (0-100); Basophils Percent Auto 0.3 % (0-2); Eosinophils Absolute Auto 0 /uL (0-450); Eosinophils Percent Auto 0.4 % (2-4); Hemoglobin 11.1 g/dL (12.0-16.0); Lymphocytes Absolute Auto 1800 /uL (1100-4500); Lymphocytes Percent Auto 18.2 % (25-40); Mean Corpuscular HGB Conc 33.6 % (30-36); Mean Corpuscular Hemoglobin 30.2 PG (26-34); Mean Corpuscular Volume 89.9 fL (80-100); Monocytes Absolute Auto 900 /uL (0-900); Neutrophils Absolute Auto 7300 /uL (1500-7000); Neutrophils Percent Auto 72.1 % (50-75); Platelet Count 254 X10^3/uL (150-400); Red Blood Cell Count 3.67 X10^6/uL (4.0-5.2); Red Cell Distribution Width 13.4 % (11.6-14.8); White Blood Cell Count 10.1 X10^3/uL (4.5-11.0)
[2021-02-11 06:05] LABS: BUN Creatinine Ratio 17.8 (6-22); Blood Urea Nitrogen 18 mg/dL (7-17); Calcium 8.7 mg/dL (8.4-10.2); Carbon Dioxide 31 mmol/L (22-32); Chloride 101 mmol/L (98-107); Estimated Glomerular Filt Rate 56.1 mL/min (>60); Glucose 100 mg/dL (70-100); HEMOLYSIS < 15 (0-50); Sodium 137 mmol/L (137-145)
--- NOTE | 2021-02-11 08:32 | PM.PN.1 ---
Subjective Subjective Date Patient Seen: 02/11/21 Time Patient Seen: 08:32 Interval history: Patient feeling better. Slightly more energy. Slept better. Got a new bed. Still having left back pain with coughing. Has been having persistent hemoptysis. No other changes. Flank pain maybe slightly better. No other change. Exam Vital Signs (past 8 hours): - 02/11/21 05:13 Temperature 98.4 F Pulse Rate 74 Respiratory Rate 20 Blood Pressure 118/64 Pulse Oximetry 95 Oxygen Delivery Method Room Air Oxygen Flow Rate 0 Narrative Exam Narrative: Fever curve much improved. Alert female much less fatigued in no acute distress respiratory. HEENT exam is unremarkable. Neck supple without adenopathy. Lungs sound clear today heart regular rate and rhythm. Abdomen is soft positive bowel sounds nontender. Extremities without cyanosis clubbing edema. Neurologic exam is nonfocal. Psychologically much more interactive Objective Labs Result Diagrams: 02/11/21 05:45 02/11/21 05:45 Labs: Laboratory Results - last 24 hr 02/11/21 02/11/21 05:45 05:45 WBC 10.1 RBC 3.67 L Hgb 11.1 L Hct 33.0 L MCV 89.9 MCH 30.2 MCHC 33.6 RDW 13.4 Plt Count 254 Neut % (Auto) 72.1 Lymph % (Auto) 18.2 L [place] % (Auto) 9.0 Eos % (Auto) 0.4 L Baso % (Auto) 0.3 Neut # (Auto) 7300 H Lymph # (Auto) 1800 [place] # (Auto) 900 Eos # (Auto) 0 Baso # (Auto) 0 Sodium 137 Potassium 4.0 Chloride 101 Carbon Dioxide 31 BUN 18 H Creatinine 1.01 Estimated GFR 56.1 L BUN/Creatinine Ratio 17.8 Glucose 100 Calcium 8.7 PFSH Social History household members: family Smoking Status: Former smoker Assessment & Plan Assessment & Plan narrative: Sepsis syndrome. Much improved. Last fever almost 24 hours ago. White count is decreased. Kidney failure is improved. Sadly no culture of the urine was done. Blood cultures are negative. Antibiotic coverage seems to be appropriate. At this point will continue IVs today re-evaluate tomorrow may switch to orals tomorrow. Decreased fluid to 75 an hour. Hemoptysis. Patient long-time smoker had quit 1 and half years ago. Probably secondary to pneumonia but will obtain CT scan to verify. Pneumonia. Clinically doing better. White count is down. Continue current antibiotics. Probable pyelonephritis. Certainly defined on CT scan. Seems to be improved. Right flank pain is improved. Will follow. Continue antibiotics. Hopefully tomorrow switch to orals. Acute renal failure. Probably at baseline. Probably secondary to sepsis syndrome and dehydration. Seems to be improved. Will slow hydration today hope can discontinue tomorrow. Dehydration. Much improved. Will slow hydration down see how her oral intake is today and re-evaluate in a.m.. Probably p.o. to discontinue. Hypertension. Will still hold medicines for now. Will follow. Certainly blood pressure not elevated. Cholecystitis. Patient does have cholecystitis but does not appear to be infected. Will continue to follow. May need to consider removal in the future. Chronic right flank pain. Will have to deal with this on a longstanding basis. May be related to her cholelithiasis but I do not think so. Could be muscular. CT scan did not show anything definitive. Code status. Full. DVT prophylaxis stable. GI prophylaxis at this time does not need. Disposition. Expect 2 or 3 more days depending on response. Hopefully can switch to orals tomorrow. Some of this will depend on culture results. Will see how things go. Certainly much better today Quality VTE Deep Vein Thrombosis/Pulmonary Embolism Present on Admission: No
--- NOTE | 2021-02-11 08:43 | DI.CT.S_ITS ---
PROCEDURE: CT CHEST WO CON INDICATIONS: hemoptysis in smoker TECHNIQUE: Noncontrast 5 mm thick sections acquired from the pulmonary apices to the posterior costophrenic angles. 1 mm lung window, 5 mm thick coronal and sagittal and 7 mm axial MIP reformats were then acquired. For radiation dose reduction, the following was used: automated exposure control, adjustment of mA and/or kV according to patient size. COMPARISON: [facility], , XR CHEST 1V, 02/09/2021, 20:19. [facility], , CHEST 2 VIEW, 06/21/2017, 11:08. FINDINGS: Image quality: Excellent. Lungs and pleura: There is mild to moderate centrilobular and paraseptal emphysema that is more prominent in the upper lobes bilaterally. A large consolidation is seen in the left upper lobe extending into the lingula. The remainder of the lungs are clear. There is no pleural effusion or pneumothorax. Mediastinum: Heart size is normal. Trace pericardial effusion. Thoracic aorta and central pulmonary arteries are normal in size. Multiple small lymph nodes are seen in the AP window and prevascular space measuring up to 8 mm in diameter, non-specific and likely reactive. Esophagus is normal in caliber. No hiatal hernia. Bones and chest wall: No suspicious bony lesions. No vertebral body compression fractures. No axillary or supraclavicular adenopathy by size criteria. Thyroid gland is unremarkable. Multilevel degenerative changes are seen in the spine.. Abdomen: There is diffuse fatty infiltration of the liver. Small calculi are seen in the gallbladder. A colonic diverticulum is seen without inflammatory changes. Visualized upper abdominal solid organs and bowel loops otherwise appear normal in the absence of contrast. IMPRESSION: 1. Left upper lobe consolidation most likely represents pneumonia. However, radiographic follow-up to resolution is recommended to exclude adenocarcinoma. 2. Mildly increased number of small mediastinal lymph nodes, which are most likely reactive. 3. Diffuse hepatic steatosis. 4. Cholelithiasis. Dictated by: Dakota Navarro M.D. on 02/11/2021 at 9:11 Approved by: Dakota Navarro M.D. on 02/11/2021 at 9:21
[2021-02-11] MEDS: LACTATED RINGERS 1,000 ML 75 ML IV (09:21)
[2021-02-11] MEDS: ENOXAPARIN 40 MG/0.4 ML SYRINGE SUBCUT ×2 (09:24→21:41)
[2021-02-11 10:22] LABS: Add Manual Diff / Slide Review SLIDE REVIEW
[2021-02-11 10:23] LABS: RBC Morphology Normal Morphology
[2021-02-11 13:00] VITALS: BP 142/83; PULSE 75; RESP 16; TEMP 37.1; O2SAT 94
--- NOTE | 2021-02-11 13:48 | PC.NURSE ---
Pt A&Ox3. Reports feeling slightly better today.Per Noc shift RN sleeping throughout the night. MD at bedside this a.m. evaluating patient noted hemoptysis, and CT of chest ordered. LR reduced to 75ml/hr. Course crackles in lower lobe. Denies SOB, 02 saturation 94 on RA. Bobby complaints of pain. Daughter at bedside supportive. SBP 140's /70's this afternoon, HR 70's temp 98.7 F. Continuous monitoring.
--- NOTE | 2021-02-11 14:50 | PT.IIE ---
Current Diagnoses Tubulo-interstitial nephritis, not specified as acute or chronic (02/09/21) Physical Therapy Inpatient Evaluation/Re-Eval M1 PT/OT-IP Prior Functional Status Start: 02/11/21 15:47 Freq: NEEDED Status: Active Protocol: Document 02/11/21 14:50 AB (Rec: 02/11/21 16:01 AB [email or web address]) Medical Review Prior Functional Status Medical History Reviewed Yes Communication able to make needs known Mobility and Gait pt stated that she is independent with all mobilities and ambulation without AD but uses 2 trekking poles for long distance ambulation Social History Household Members none Living Arrangements RV Number of Floors (Floors) One Floor Number of Stairs To Enter/Railing? 2 steps L rail Home Environment High Toilet,Walk in Shower Home Equipment Front Wheel Walker,Straight Cane,Hand Held Shower,Grab Bars In Shower Additional Social History Comment pt stated that her daughter/ SIXTO/ 2 grandchildren lives in her home and she lives in her RV in the same property M2 PT-IP Current Condition Start: 02/11/21 15:47 Freq: NEEDED Status: Active Protocol: Document 02/11/21 14:50 AB (Rec: 02/11/21 16:01 AB [email or web address]) Physical Therapy Current Condition Current Condition Evaluation Date 02/11/21 Treatment Diagnosis sepsis; pyelonephritis; PNA; difficulty in walking Onset Date 02/09/21 M3 PT-IP Subjective Start: 02/11/21 15:47 Freq: NEEDED Status: Active Protocol: Document 02/11/21 14:50 AB (Rec: 02/11/21 16:01 AB [email or web address]) Subjective Physical Therapy Visit Type Type Initial Evaluation Visit Start Time 14:50 Visit Stop Time 15:11 Total Visit Minutes 21 Number of PIG CASTER Visits 0 Physical Therapy Visit Comments Patient Comments pt is agreeable to do PT Therapy Pain Assessment Pain Present Pain Present Denied Pain M4 PT-IP Mobility and Gait Start: 02/11/21 15:47 Freq: NEEDED Status: Active Protocol: Document 02/11/21 14:50 AB (Rec: 02/11/21 16:01 AB [email or web address]) PT-Bed Mobility Assessment Supine to Sit Supine to Sit Standby Assistance Sit to Supine Sit to Supine Standby Assistance PT-Transfer Assessment Sit to and From Stand Sit to and from Stand Standby Assistance Equipment Transfer Assistive Device None,Bed Rail Orthotic/Prosthetic Devices or Brace: No Comments Mobility Comments pt completed supine to sit SBA ; ambulated in room without AD SBA; presents with unsteady antalgic gait. pt agreed to walk out in the hallway and completed ~125 ft without AD initially SBA but after ~ 50 ft requiring CGA due to increase unsteadiness and SOB and requiring standing rest breaks. pt completed up/down steps using L rail SBA and ambulated back to her room without AD CGA. pt sat on EOB and O2 sat checked: 94-96% at RA but with (+) SOB. pt agreed to sit up on chair and got up SBA and sat on chair. informed nurse regarding pt's mobility and assistance level. Gait Assessment Gait Gait Assistance Required: Standby Assistance,Contact Guard Assist Distance (Feet) 125 Able to Maintain Weight Bearing Status Yes During Gait Assistive Devices Assistive Device None,Gait Belt Gait Deviations General Gait Pattern Antalgic,Decreased Stride Length,Decreased Feet Clearance Factors Limiting Gait Function Factors Limiting Gait Function Decreased Activity Tolerance, Decreased Strength,Pain,Poor Balance,Poor Safety Awareness, Respiratory Distress Comments Gait Comments pls refer to mobility section for details pt with antalgic gait and pt stated that she has problems with her sacrum Stair Climbing Assessment Evaluation Level of Assist On Stairs Standby Assistance Devices Stair Climbing Assistive Devices Left Railing Technique/Endurance Stair Climbing Direction Ascend and Descend Stair Climbing Technique Step Over Step Number of Steps Climbed 3 Query Text: Stair Climbing Set # Repetitions (reps) 1 PT-Balance Assessment Sitting Balance and Reactions Static Sitting Balance Ability Good Dynamic Sitting Balance Ability Good Standing Balance and Reactions Static Standing Balance Ability Good Dynamic Standing Balance Ability Fair Device Used without AD M5 PT-IP Objective Assessments Start: 02/11/21 15:47 Freq: NEEDED Status: Active Protocol: Document 02/11/21 14:50 AB (Rec: 02/11/21 16:01 AB [id number]) Orientation Orientation/Cognition Level of Alertness Alert Orientation Name,Place,Situation Language Function Ability No Deficits Noted Memory Description No Deficits Noted Gross Range of Motion Lower Extremity ROM Assessment Within Functional Limits Strength Lower Extremity Strength Assessment Within Functional Limits Coordination Assessment Gross Coordination Gross Coordination WNL Muscle Tone Muscle Tone WNL Yes M6 PT-IP Treatment Start: 02/11/21 15:47 Freq: NEEDED Status: Active Protocol: Document 02/11/21 14:50 AB (Rec: 02/11/21 16:01 AB [id number]) Physical Therapy Treatment Education Education Provided Safety M7 PT-IP Assessment and Plan Start: 02/11/21 15:47 Freq: NEEDED Status: Active Protocol: Document 02/11/21 14:50 AB (Rec: 02/11/21 16:01 AB [email or web address]) PT Summary Assessment and Plan Potential Rehabilitation Potential Good Status of Condition at Evaluation Evolving Summary Impairments Pain,ROM,Strength,Balance, Coordination,Sensation,Tone, Cognition,Bed Mobility, Transfers,Gait,Activity Tolerance Assessment Summary pt requiring SBA to CGA with mobility without AD but has decrease activity tolerance demonstrating increase unsteadiness with ambulation after ~ 50 ft of walking. pt will benefit from continued PT to improve overall strength and mobility independence for safe d/c home. pt stated that she can stay at her daughter' s plance or her daughter can stays with her if needed to assist her. Goals Bed Mobility Goal Independent Transfer Goal Independent Gait Goal Independent Gait Distance 200 Other Goals up/down 2 steps L rail mod I Days to Meet Goals 5 Frequency of Treatment Frequency Of Treatment Once a Day Treatment Plan Physical Therapy Treatment Plan Bed Mobility Training,Transfer Training,Gait Training, Therapeutic Exercise,Balance Retraining,Discharge Planning, Hot or Cold Pack,Neuromuscular Re-ed,Coordination Retraining Precautions Other Precautions O2 sat Recommendations To Nursing Amount of Assist Needed 1 Person Assist Discharge Recommendations PT Discharge Recommendations Home with Assistance,Home Health Transportation Needs at Discharge Private Vehicle
[2021-02-11 16:15] VITALS: BP 137/74; PULSE 74; RESP 19; TEMP 36.6; O2SAT 95
[2021-02-11] MEDS: AZITHROMYCIN 500 MG in DEXTROSE 5% IN WATER 250 ML IV (22:32)
[2021-02-11 23:40] VITALS: BP 125/72; PULSE 79; RESP 18; TEMP 36.6; O2SAT 97
[2021-02-11] MEDS: ACETAMINOPHEN 325 MG TABLET 650 MG PO (23:44)
[2021-02-12] MEDS: CEFTRIAXONE 1 GM/50 ML FROZ.PIGGY IV (00:05)
--- NOTE | 2021-02-12 00:32 | PC.NURSE ---
Addendum entered by Shanika Zapien R.N. 02/12/21 04:45: States she slept well past 4 hours and feeling better this morning. Denies any pain at this time. Original Note: patient is alert and oriented but appears fatigued. Breath sounds diminished with crackles in left LL; RA sat 97% and patient denies feeling SOB with/without exertion. Does report she has been coughing more and bringing up yellow sputum but none noted at this time. HRR. Denies nausea. BT present and is passing flatus. Denies dysuria, frequency or urgency with urination. Does report generalized weakness and feeling whoozy tonight so instructed to call for assistance when getting out of bed; bed alarm activated as patient not certain she will remember to call for help. Complains of 3/10 pain in lungs and right flank so medicated with Tylenol and is currently asleep. Refused SCD's so reminded to ankle wave when awake and patient verbalizes understanding.
[2021-02-12] MEDS: LACTATED RINGERS 1,000 ML 75 ML IV (03:54)
[2021-02-12 06:17] LABS: Add Manual Diff / Slide Review NO; Basophils Absolute Auto 0 /uL (0-100); Basophils Percent Auto 0.4 % (0-2); Eosinophils Absolute Auto 200 /uL (0-450); Eosinophils Percent Auto 3.2 % (2-4); Hemoglobin 11.1 g/dL (12.0-16.0); Lymphocytes Absolute Auto 2100 /uL (1100-4500); Lymphocytes Percent Auto 33.2 % (25-40); Mean Corpuscular HGB Conc 33.7 % (30-36); Mean Corpuscular Hemoglobin 30.3 PG (26-34); Mean Corpuscular Volume 90.1 fL (80-100); Monocytes Absolute Auto 700 /uL (0-900); Monocytes Percent Auto 11.1 % (3-14); Neutrophils Absolute Auto 3200 /uL (1500-7000); Neutrophils Percent Auto 52.1 % (50-75); Platelet Count 284 X10^3/uL (150-400); Red Blood Cell Count 3.66 X10^6/uL (4.0-5.2); Red Cell Distribution Width 13.7 % (11.6-14.8); White Blood Cell Count 6.2 X10^3/uL (4.5-11.0)
[2021-02-12 06:23] LABS: BUN Creatinine Ratio 21.6 (6-22); Blood Urea Nitrogen 19 mg/dL (7-17); Calcium 8.6 mg/dL (8.4-10.2); Carbon Dioxide 31 mmol/L (22-32); Chloride 101 mmol/L (98-107); Estimated Glomerular Filt Rate > 60.0 mL/min (>60); Glucose 100 mg/dL (70-100); HEMOLYSIS < 15 (0-50); Potassium 3.7 mmol/L (3.4-5.1); Sodium 138 mmol/L (137-145)
[2021-02-12] MEDS: ENOXAPARIN 40 MG/0.4 ML SYRINGE SUBCUT ×2 (08:21→20:40)
[2021-02-12 08:43] VITALS: BP 142/71; PULSE 80; RESP 15; TEMP 36.6; O2SAT 96
--- NOTE | 2021-02-12 08:49 | P.PN_ITS ---
Subjective Subjective Date Patient Seen: 02/12/21 Time Patient Seen: 08:50 Interval history: Patient feeling better today. No further fevers. Still having some left chest pain and some right flank pain but much better. Sleeping better. Energy better. Feels like she is pretty close back to normal. Exam Vital Signs (past 8 hours): - 02/12/21 08:43 Temperature 97.8 F Pulse Rate 80 Respiratory Rate 15 Blood Pressure 142/71 H Pulse Oximetry 96 Oxygen Delivery Method Room Air Oxygen Flow Rate 0 Narrative Exam Narrative: Alert much less fatigued female in no acute distress. Mucous membranes moist. Neck supple without adenopathy. Lungs are clear. Heart regular rate and rhythm without murmurs clicks rubs or gallops. Extremities without cyanosis clubbing edema neurologic exam is nonfocal Objective Labs Result Diagrams: 02/12/21 06:00 02/12/21 06:00 Labs: Laboratory Results - last 24 hr 02/11/21 02/12/21 02/12/21 05:45 06:00 06:00 WBC 6.2 RBC 3.66 L Hgb 11.1 L Hct 33.0 L MCV 90.1 MCH 30.3 MCHC 33.7 RDW 13.7 Plt Count 284 Neut % (Auto) 52.1 D Lymph % (Auto) 33.2 [place] % (Auto) 11.1 Eos % (Auto) 3.2 Baso % (Auto) 0.4 Neut # (Auto) 3200 Lymph # (Auto) 2100 [place] # (Auto) 700 Eos # (Auto) 200 Baso # (Auto) 0 RBC Morphology Normal morphology Sodium 138 Potassium 3.7 Chloride 101 Carbon Dioxide 31 BUN 19 H Creatinine 0.88 Estimated GFR > 60.0 BUN/Creatinine Ratio 21.6 Glucose 100 Calcium 8.6 [facility] Social History household members: none Smoking Status: Former smoker Assessment & Plan Assessment & Plan narrative: Sepsis. Based on renal failure, low blood pressu re, fever, positive procalcitonin. Improved. White count is down. No fever now for 24 hours. Clinically doing much better. This point was switched orals. If she stable and white count is normal tomorrow. Will discharge to home. Hemoptysis. CT scan shows no definitive abnormality other than emphysema. Will need to follow with chest x-ray in 1 month to make sure resolved. If not will follow from there. Pneumonia. Significantly improved. Clinically much better. Whether this is the cause of her sepsis or not isn't clear fluid at this point will continue oral antibiotics and discharge tomorrow stable. Pyelonephritis. Sadly did not get culture of urine. Clinically much improved. Patient has had longstanding right flank pain which is unclear of cause but certainly improved with treatment so at this point will continue and follow. Acute renal failure. Probably pre renal secondary to sepsis. Seems to be doing well. Will discontinue hydration today. No further follow-up. Dehydration. Resolved. Now euvolemic. No further fluids taking p.o. well. Hypertension. Blood pressure beginning to increase. Will restart usual blood pressure medicines. Gallstones. No evidence of infection. No other changes. Follow up as needed Chronic right deon pain. Will follow as outpatient. Code status full. GI prophylaxis. No need at this time. Disposition. Seems to be doing well if stable through the course of the next 24 hours discharged home on antibiotics. Quality VTE Deep Vein Thrombosis/Pulmonary Embolism Present on Admission: No
[2021-02-12 09:22] VITALS: BP 142/71
[2021-02-12] MEDS: lisinopriL 20 MG TABLET PO (09:22)
[2021-02-12] MEDS: AZITHROMYCIN 250 MG TABLET PO (09:22)
[2021-02-12] MEDS: cefUROXime 250 MG TABLET 500 MG PO ×2 (09:22→20:40)
--- NOTE | 2021-02-12 09:49 | PT.IPTN ---
Current Diagnoses Tubulo-interstitial nephritis, not specified as acute or chronic (02/09/21) Physical Therapy Treatment Note M2 PT-IP Current Condition Start: 02/11/21 15:47 Freq: NEEDED Status: Active Protocol: Document 02/11/21 14:50 AB (Rec: 02/11/21 16:01 AB [id number]) Physical Therapy Current Condition Current Condition Evaluation Date 02/11/21 Treatment Diagnosis sepsis; pyelonephritis; PNA; difficulty in walking Onset Date 02/09/21 M3 PT-IP Subjective Start: 02/11/21 15:47 Freq: NEEDED Status: Active Protocol: Document 02/12/21 09:44 [facility] (Rec: 02/12/21 09:49 [facility] [id number]) Subjective Physical Therapy Visit Type Type Discharge Summary Visit Start Time 09:15 Visit Stop Time 09:40 Total Visit Minutes 25 Number of CLINICAL LABORATORY MANAGER Visits 0 Physical Therapy Visit Comments Patient Comments pt is agreeable to do PT. Feeling better M4 PT-IP Mobility and Gait Start: 02/11/21 15:47 Freq: NEEDED Status: Active Protocol: Document 02/12/21 09:44 [facility] (Rec: 02/12/21 09:49 [facility] [email or web address]) PT-Transfer Assessment Sit to and From Stand Sit to and from Stand Independent Equipment Transfer Assistive Device None Orthotic/Prosthetic Devices or Brace: No Comments Mobility Comments sit to stand indep from bed and from couch in room. She was able to do standing balanec exercises iwth PT then take a rest on bed and sit to stand indpe then amb 150ft indep and up/down stairs w/ left rail Indep safely with no signs of imbalance. Pt edu on being indep in roomand calling RN if feels lightheaded or dizzy Gait Assessment Gait Gait Assistance Required: Independent Distance (Feet) 150 Able to Maintain Weight Bearing Status Yes During Gait Assistive Devices Assistive Device None Gait Deviations General Gait Pattern Within Normal Limits Comments Gait Comments see mobility section Stair Climbing Assessment Evaluation Level of Assist On Stairs Independent Devices Stair Climbing Assistive Devices Left Railing Technique/Endurance Stair Climbing Direction Ascend and Descend Stair Climbing Technique Step Over Step Number of Steps Climbed 3 Stair Climbing Set # Repetitions (reps) 1 PT-Balance Assessment Balance Tests Prince Balance Test Score 55/56 Comments Other Balance Tests/Deviations/Treatment EC: WBOS, NBOS, staggered : stance B EO: SLS B, tandem stance B Functional Assessments Functional Tests Tinetti Balance and Gait Assessment M5 PT-IP Objective Assessments Start: 02/11/21 15:47 Freq: NEEDED Status: Active Protocol: Document 02/12/21 09:44 [facility] (Rec: 02/12/21 09:49 [facility] [id number]) Strength Lower Extremity Strength Assessment Within Functional Limits M6 PT-IP Treatment Start: 02/11/21 15:47 Freq: NEEDED Status: Active Protocol: Document 02/11/21 14:50 AB (Rec: 02/11/21 16:01 AB [id number]) Physical Therapy Treatment Education Education Provided Safety M7 PT-IP Assessment and Plan Start: 02/11/21 15:47 Freq: NEEDED Status: Active Protocol: Document 02/12/21 09:44 [facility] (Rec: 02/12/21 09:49 [facility] [email or web address]) PT Summary Assessment and Plan Summary Assessment Summary Pt has met all goals at this time so is DC from PT. She was safew ith all mobility and showed no signs of unsteadiness. Was able to do SLS On R for 15 sec and L for 7 sec. Able to do tandem stance about 20 sec. She shows low fall risk with prince and tinnetti so dc to indep with mobility. Frequency of Treatment Frequency Of Treatment Discharge Recommendations To Nursing Amount of Assist Needed Independent Discharge Recommendations PT Discharge Recommendations Home with Assistance,Home Health Transportation Needs at Discharge Private Vehicle
--- NOTE | 2021-02-12 10:31 | PC.NURSE ---
Pt IV SL and was up walking in halls with P.T. Denies shortness of breath, nausea, or pain. Pt cleared by P.T. for independent ambulation and is aware she should move slowly and rest as needed and if she is feeling at all dizzy she should call for assistance.
[2021-02-12 15:47] VITALS: BP 137/68; PULSE 68; RESP 20; TEMP 36.6; O2SAT 96
[2021-02-12 19:41] VITALS: BP 126/57; PULSE 71; RESP 20; TEMP 37
[2021-02-13 00:45] VITALS: BP 143/75; PULSE 75; RESP 18; TEMP 36.7; O2SAT 95
[2021-02-13] MEDS: ACETAMINOPHEN 325 MG TABLET 650 MG PO (00:47)
--- NOTE | 2021-02-13 02:01 | PC.NURSE ---
patient is alert and oriented. States she is feeling uncomfortable. Still having lung and right flank pain with severity of 2/10 so medicated with Tylenol. Also complains of upset stomach which she believes is related to taking po antibiotics and not eating much for dinner so given chicken broth and gingerale with resolution of stomach upset. Breath sounds with expiratory wheezes throughout. Denies SOB when up in room but states she still feels SOB when walking any distance. Reports sputum is now white/clear and no hemoptysis. HRR. BP 143/75 and was restarted yesterday on lisinopril. Is noted to have trace bilateral foot/ankle edema tonight and patient reports was taking HCTZ prior to hospitalization so will check with MD in a.m. if patient should go back on medication. BT present and abdomen is soft. Denies dysuria, or frequency but states she is having urgency but then reports this is chronic. Up independent in room. Continues to decline use of SCD's so reminded to ankle wave. Fall risk score is moderate but has been cleared by PT for being safe for independent mobilization.
[2021-02-13 06:18] LABS: Add Manual Diff / Slide Review NO; Basophils Absolute Auto 0 /uL (0-100); Basophils Percent Auto 0.6 % (0-2); Eosinophils Absolute Auto 300 /uL (0-450); Eosinophils Percent Auto 3.8 % (2-4); Hematocrit 31.5 % (36-46); Hemoglobin 10.5 g/dL (12.0-16.0); Lymphocytes Absolute Auto 2200 /uL (1100-4500); Lymphocytes Percent Auto 33.5 % (25-40); Mean Corpuscular HGB Conc 33.3 % (30-36); Monocytes Absolute Auto 700 /uL (0-900); Monocytes Percent Auto 9.9 % (3-14); Neutrophils Absolute Auto 3400 /uL (1500-7000); Neutrophils Percent Auto 52.2 % (50-75); Platelet Count 305 X10^3/uL (150-400); Red Cell Distribution Width 13.5 % (11.6-14.8); White Blood Cell Count 6.6 X10^3/uL (4.5-11.0)
[2021-02-13 06:20] LABS: BUN Creatinine Ratio 17.9 (6-22); Blood Urea Nitrogen 14 mg/dL (7-17); Calcium 8.8 mg/dL (8.4-10.2); Carbon Dioxide 29 mmol/L (22-32); Chloride 104 mmol/L (98-107); Estimated Glomerular Filt Rate > 60.0 mL/min (>60); Glucose 110 mg/dL (70-100); HEMOLYSIS < 15 (0-50); Potassium 3.6 mmol/L (3.4-5.1); Sodium 137 mmol/L (137-145)
[2021-02-13 07:55] VITALS: BP 151/66; PULSE 61; RESP 23; TEMP 36.8; O2SAT 95
[2021-02-13 08:18] VITALS: BP 140/67
[2021-02-13] MEDS: lisinopriL 20 MG TABLET PO (08:18)
[2021-02-13] MEDS: cefUROXime 250 MG TABLET 500 MG PO (08:18)
[2021-02-13] MEDS: AZITHROMYCIN 250 MG TABLET PO (08:18)
[2021-02-13] MEDS: SODIUM CHLORIDE 0.9% FLUSH 10 ML IV (08:19)
--- NOTE | 2021-02-13 10:25 | PM.DS.1 ---
History of Present Illness History of Present Illness Chief complaint: states, fever Discharge Providers Provider Date of admission: 02/09/21 22:34 Discharge Date: 02/13/21 Primary care physician: ELICEO Ram Consults: 02/11/21 08:29 Consult to Physical Therapy Evaluate & Treat Comment: weakness from sepsis Physician Instructions: Evaluate and Treat Discharge provider: Murray Patterson MD Summary Hospital Course Discharge Diagnosis: sepsis/pyelonephritis Hospital Course: was admitted with fever and abdominal pain in setting of dehydration, elevated WBCs, suspected pyelonephritis which improved on IV antibiotics. Also received short azithro given pulm hx which she also did well on. By DoD she was feeling better and taking her meds PO. Her WBCs were normal and stable. She will continue course of PO abx and f/u as outpt. Status at Discharge Cognitive/behavioral status at discharge: oriented Functional status at discharge: independent ambulation Overall status at discharge: patient is progressing back to baseline Time Spent with Patient Time spent: Less than 30 minutes Exam Vital Signs (past 8 hours): - 02/13/21 07:55 02/13/21 08:18 Temperature 98.3 F Pulse Rate 61 Respiratory Rate 23 Blood Pressure 151/66 H 140/67 Pulse Oximetry 95 Oxygen Delivery Method Room Air Oxygen Flow Rate 0 Narrative Exam Narrative: in street clothes with bags packed Const General: cooperative, healthy appearing, comfortable, well developed and well groomed HENGA Head: normal to inspection, normocephalic and atraumatic Resp Effort & Inspection: normal respiratory effort and able to speak in complete sentences Auscultation: clear to auscultation bilaterally Percussion: percussion normal Cardio Rate: regular rate Rhythm: regular rhythm Heart Sounds: S1 normal and S2 normal GI Palpation: soft and No guarding Percussion: normal to percussion Auscultation: normal bowel sounds Other: No CVA tenderness Neuro General: patient alert, patient awake, patient oriented x3 and deep tendon reflexes 2+ bilaterally Cranial Nerves: CN's II-XI intact bilaterally Cognition: normal cognition Speech: speech normal Psych Appearance: grossly normal Mental Status: mental status grossly normal Speech and Movement: speech and movement normal Objective Labs Result Diagrams: 02/13/21 05:20 02/13/21 05:20 Labs: Laboratory Results - last 24 hr 02/13/21 02/13/21 05:20 05:20 WBC 6.6 RBC 3.50 L Hgb 10.5 L Hct 31.5 L MCV 90.0 MCH 30.0 MCHC 33.3 RDW 13.5 Plt Count 305 Neut % (Auto) 52.2 Lymph % (Auto) 33.5 [place] % (Auto) 9.9 Eos % (Auto) 3.8 Baso % (Auto) 0.6 Neut # (Auto) 3400 Lymph # (Auto) 2200 [place] # (Auto) 700 Eos # (Auto) 300 Baso # (Auto) 0 Sodium 137 Potassium 3.6 Chloride 104 Carbon Dioxide 29 BUN 14 Creatinine 0.78 Estimated GFR > 60.0 BUN/Creatinine Ratio 17.9 Glucose 110 H Calcium 8.8 PFSH Social History household members: none Smoking Status: Former smoker Discharge Assessment & Plan Assessment and Plan Assessment: #Sepsis - improved with stable normal WBCs, no fever, tolerating PO abx and feeling better today. #hemoptysis - in setting of emphysema and no CT findings, resolving, f/u with outpt CXR in 1 onth to make sure resolved. #PNA - clinically improved, s/p azithro tx #acute renal failure - in setting of sepsis, function improving, s/p IVF #dehydration - improved s/p IVF, doing well on orals #HTN - restart home meds on discharge and f/u at TCM visit #pyelonephritis - uncultured, clinical dx with clinical improvement. Transitioned to PO and feeling better. #hx of gallstones - stable, f/u prn #chronic R flank pain - stable, f/u outpt OK to resume regular diet as tolerated. DC script: to complete 1 week course of PO abx, prescription sent through office EMR, 500mg cefuroxime PO BID #11 Disposition: home today to f/u outpt Discharge Plan Discharge Plan Patient Disposition: Home Discharge orders & Medications Prescriptions: Continued ascorbic acid (vitamin C) 500 MG tablet 500 mg PO QDAY Qty: 0 RF: 0 lisinopril 10 MG tablet 20 mg PO QDAY Qty: 30 RF: 0 ibuprofen [Advil] 200 MG tablet 200 mg PO Q4HP PRN (Reason: Pain (Scale Score 1-3)) Qty: 0 RF: 0 VITAMIN D (Vitamin D3) tablet 1,000 units PO DAILY Qty: 0 RF: 0 hydrochlorothiazide 25 mg tablet 25 mg PO DAILY RF: 0 Follow up/Referrals: Pia Kumar ARNP [Primary Care Provider] - Discharge Health Status Multidrug resistant organism: No MDRO Visit Report/Discharge Packet Instructions: DI for Kidney Infection, Cefuroxime Discharge Data Primary Care Provider: Pia Kumar Quality VTE Deep Vein Thrombosis/Pulmonary Embolism Present on Admission: No
--- NOTE | 2021-02-13 10:51 | PC.NURSE ---
Pt is dressed and ready for discharge home with Daughter. IV removed. Went over d/c instructions with Pt and Daughter-discussed d/c meds, time of last dose, reviewed stroke education, encouraged fluid intake, and Pt is to make an appointment to follow up next week with her PCP. Pt denied further questions and was taken out via w/c by RN to POV with daughter and all belongings.
--- NOTE | 2021-02-16 20:38 | PC.NURSE ---
Late entry from 02/10/21- Pt given cefazolin instead of ceftriaxone @ 2300. No s/ss of reaction or discomfort. Provider notified, no new orders.
== END 2021-02-13 10:54 | disposition home or self-care (01) | DRG 872 ==
LOC: ED 22:34 → AC 22:36
PROVIDERS: Family Medicine; Admitting Provider Family Medicine; Emergency Provider Emergency Medicine; PCP Nurse Practitioner Family; Referring Provider Emergency Medicine; Visit Provider Family Medicine
DX: A41.9 Sepsis, unspecified organism (principal); N12 Tubulo-interstitial nephritis, not specified as acute or chronic; R04.2 Hemoptysis; N17.9 Acute kidney failure, unspecified; R65.20 Severe sepsis without septic shock; I95.9 Hypotension, unspecified; I10 Essential (primary) hypertension; E86.0 Dehydration; Z20.822 Contact with and (suspected) exposure to COVID-19; Z87.891 Personal history of nicotine dependence; K80.20 Calculus of gallbladder without cholecystitis without obstruction; R10.9 Unspecified abdominal pain
CPT/HCPCS: 36415; 71045; 71250; 74177; 76705; 80048; 80053; 81001; 81003; 82550; 82553; 83605; 83690; 84145; 84484; 85007; 85025; 87040; 87635; 93005; 96361; 96365; 96367; 97112; 97116; 97162; 99284; 99285; J1650; J1956; J2270; J2405; Q9967

== ENCOUNTER → 2021-03-10 10:17 | Outpatient (CLI) | payer BC, SELFPAY ==
[2021-02-09 22:45] VITALS: BMI 41.2
--- NOTE | 2021-03-10 10:20 | DI.RAD.S_ITS ---
PROCEDURE: XR CHEST 2V INDICATIONS: ABNORMAL CHEST CT TECHNIQUE: 2 views of the chest were acquired. COMPARISON: [facility], CR, XR CHEST 1V, 02/09/2021, 20:19. FINDINGS: Surgical changes and devices: None Lungs and pleura: Minimal residual left perihilar atelectasis and/or infiltrate. Remainder the lungs and pleural space are clear. Mediastinum: Mediastinal contours are normal. Heart size is normal. Bones and chest wall: No suspicious bony abnormalities. Soft tissues appear unremarkable. IMPRESSION: Minimal residual left perihilar atelectasis and/or infiltrate. Dictated by: Rivas Augustin M.D. on 03/10/2021 at 11:23 Approved by: Rivas Augustin M.D. on 03/10/2021 at 11:30
== END ==
PROVIDERS: PCP Internal Medicine; Referring Provider Internal Medicine; Visit Provider Internal Medicine
DX: R93.89 Abnormal findings on diagnostic imaging of other specified body structures (principal)
CPT/HCPCS: 71046

== ENCOUNTER → 2021-08-21 14:43 | Outpatient (CLI) | payer BC, SELFPAY ==
[2021-02-09 22:45] VITALS: BMI 41.2
--- NOTE | 2021-08-21 14:47 | DI.US.S_ITS ---
PROCEDURE: US CAROTID DOPPLER BI INDICATIONS: PULSATILE TINNITUS TECHNIQUE: Color and pulse Doppler interrogation was performed of both carotid systems, with image documentation and velocity measurements. COMPARISON: None. FINDINGS: Stenosis calculations are based on SRU (Society of Radiologists in Ultrasound) criteria. The flow velocities and the arterial waveforms are normal within both carotid arterial systems. The estimated degree of internal carotid artery stenosis is less than 50%. Antegrade flow is confirmed within both vertebral arteries. IMPRESSION: No hemodynamically significant stenosis is seen. Dictated by: Kuldip Holder M.D. on 08/21/2021 at 15:04 Approved by: Kuldip Holder M.D. on 08/21/2021 at 15:05
== END ==
PROVIDERS: PCP Internal Medicine; Referring Provider Otolaryngology; Visit Provider Otolaryngology
DX: H93.A9 Pulsatile tinnitus, unspecified ear (principal)
CPT/HCPCS: 93880

== ENCOUNTER → 2022-05-06 14:54 | Outpatient (CLI) | payer OTHER, SELFPAY ==
[2021-02-09 22:45] VITALS: BMI 41.2
--- NOTE | 2022-05-06 | DI.MG.S_ITS ---
BILATERAL DIGITAL SCREENING MAMMOGRAM 3D/2D WITH CAD: 05/06/2022 CLINICAL: Routine screening. Comparison is made to exams dated: 08/25/2010 mammogram and 02/04/2007 mammogram - [facility]. The tissue of both breasts is predominantly fatty. Current study was also evaluated with a Computer Aided Detection (CAD) system. No significant masses, calcifications, or other findings are seen in either breast. There has been no significant interval change. IMPRESSION: NEGATIVE There is no mammographic evidence of malignancy. A 1 year screening mammogram is recommended. Based on the Tyrer Cuzick model (a risk assessment model) the patient's lifetime risk is 3.5% and her 10 year risk is 1.4%. According to the ACR, ACS, and NCCN guidelines, an annual breast MRI exam along with mammogram is recommended if the patient's lifetime risk is 20% or greater. This exam was interpreted at Station ID: [id number]. NOTE: For mammograms, a report in lay terms will be sent to the patient. Approximately 15% of breast malignancies will not be visualized mammographically. In the management of a palpable breast mass, a negative mammogram must not discourage biopsy of a clinically suspicious lesion. Electronically Signed By: Bin smith/elizabeth:05/07/2022 08:00:02 letter sent: Normal Exam ACR BI-RADS Category 1: Negative [id number]
== END ==
PROVIDERS: PCP Internal Medicine; Referring Provider Internal Medicine; Visit Provider Internal Medicine
DX: Z12.31 Encounter for screening mammogram for malignant neoplasm of breast (principal)
CPT/HCPCS: 77063; 77067

== ENCOUNTER 2024-07-03 11:17 | Emergency (ER) | payer SELFPAY ==
[2021-02-09 22:45] VITALS: BMI 41.2
[2024-07-03 11:30] VITALS: BP 183/85; PULSE 74; RESP 18; TEMP 36.9; O2SAT 98; BMI 38.2
[2024-07-03] MEDS: KETOROLAC 30 MG/ML VIAL 15 MG IV (11:55)
[2024-07-03 11:57] LABS: Add Manual Diff / Slide Review NO; Basophils Absolute Auto 0 /uL (0-100); Basophils Percent Auto 0.5 % (0-2); Eosinophils Absolute Auto 100 /uL (0-450); Eosinophils Percent Auto 1.7 % (2-4); Hematocrit 40.7 % (36-46); Hemoglobin 13.7 g/dL (12.0-16.0); Lymphocytes Absolute Auto 1600 /uL (1100-4500); Lymphocytes Percent Auto 23.8 % (25-40); Mean Corpuscular HGB Conc 33.8 % (30-36); Mean Corpuscular Hemoglobin 30.1 PG (26-34); Mean Corpuscular Volume 89.3 fL (80-100); Monocytes Absolute Auto 500 /uL (0-900); Monocytes Percent Auto 6.9 % (3-14); Neutrophils Absolute Auto 4500 /uL (1500-7000); Neutrophils Percent Auto 67.1 % (50-75); Platelet Count 337 X10^3/uL (150-400); Red Blood Cell Count 4.56 X10^6/uL (4.0-5.2); Red Cell Distribution Width 13.2 % (11.6-14.8); White Blood Cell Count 6.7 X10^3/uL (4.5-11.0)
[2024-07-03 12:06] LABS: Alanine Aminotransferase 23 IU/L (<35); Albumin 4.5 g/dL (3.5-5.0); Albumin Globulin Ratio 1.3 (1.0-2.8); Alkaline Phosphatase 82 U/L (38-126); Aspartate Aminotransferase 27 IU/L (14-36); BUN Creatinine Ratio 15.1 (6-22); Bilirubin Total 0.7 mg/dL (0.2-1.3); Blood Urea Nitrogen 14 mg/dL (7-17); Calcium 9.4 mg/dL (8.4-10.2); Carbon Dioxide 24 mmol/L (22-32); Chloride 105 mmol/L (98-107); Estimated Glomerular Filt Rate > 60 mL/min (>60); Globulin 3.4 g/dL (1.7-4.1); Glucose 112 mg/dL (80-110); HEMOLYSIS 23 (0-50); Lipase 56 U/L (23-300); Potassium 4.3 mmol/L (3.4-5.1); Sodium 137 mmol/L (137-145); Total Protein 7.9 g/dL (6.3-8.2)
[2024-07-03 12:39] VITALS: PULSE 58; O2SAT 93
[2024-07-03 12:41] VITALS: BP 175/73; PULSE 62; O2SAT 93
--- NOTE | 2024-07-03 12:45 | EKG_ITS ---
[address] [address] Test Date: 2024-07-03 Pat Name: Lisa Waite Department: [facility] Room: Gender: Female Schedule Maker: DEEPALI : 1960 Requested By: Order Number: [id number] Reading MD: Solomon Jean Measurements Intervals [place] Rate: 54 P: 52 NE: 154 QRS: 22 QRSD: 86 T: 46 QT: 418 QTc: 396 Interpretive Statements Sinus bradycardia Electronically Signed On 07-03-2024 16:54:41 PDT by Solomon Jean
[2024-07-03 13:00] VITALS: PULSE 63; O2SAT 92
[2024-07-03 13:01] VITALS: BP 174/78; PULSE 57; O2SAT 94
--- NOTE | 2024-07-03 13:09 | ED_ITS ---
HPI - Back Pain/Injury General Chief Complaint: Abdominal Pain Stated Complaint: lt side pain Time Seen by Provider: 07/03/24 12:46 Source: patient, family, RN notes reviewed and old records reviewed Mode of arrival: Family Vehicle Limitations: no limitations History of Present Illness HPI Narrative: This is a 64-year-old former smoker history of hypertension who presents with complaint of left back somewhat localized to the flank. Patient states started having some discomfort last week and then moved a cord of, was doing a lot of outdoor work including using a wheelbarrow and clearing brush and had increasing pain and discomfort. She states it is much worse with movement of any sort including flexion-extension rotation and side bending. She can find a position of comfort if she is leaning backwards in her recliner or on her left side. She states pain does radiate a little bit to the middle. Patient states no rash or skin changes. There is a little bit of redness on her exam and she states she has had her heating pad there in the area causing the skin color change. No fevers, she has had some nausea but no vomiting. She states she has not had much appetite. She states she is chronic diarrhea no black or bloody stools she did have a BM which has been more formed today. No dysuria urgency or frequency that is new. No numbness tingling or weakness. No radiation of pain down her legs. Patient states she was on lisinopril as her only daily medication, she has had prior hysterectomy. She is tried Tylenol and ibuprofen her most recent doses were just before coming in. Allergy to penicillin. Former smoker, occasional alcohol, no recreational drugs. Kerry Pagan is her primary care provider. Related Data Home Medications Medication Instructions Recorded Confirmed VITAMIN D (Vitamin D3) 1,000 units PO DAILY #0 tabs 08/17/16 02/10/21 ascorbic acid (vitamin C) 500 mg 500 mg PO QDAY #0 tabs 08/17/16 02/10/21 tablet ibuprofen 200 mg tablet (Advil) 200 mg PO Q4HP PRN Pain (Scale 08/17/16 02/10/21 Score 1-3) #0 tabs lisinopril 10 mg tablet 20 mg PO QDAY #30 tabs 08/17/16 02/10/21 hydrochlorothiazide 25 mg tablet 25 mg PO DAILY 02/10/21 02/10/21 Previous Rx's Medication Instructions Recorded diazepam 5 mg tablet (Valium) 5 mg PO TID PRN muscle spasm #10 07/03/24 tabs ondansetron 4 mg disintegrating 4 mg PO Q6H PRN nausea and 07/03/24 tablet vomiting #7 tabs oxycodone 5 mg tablet 5 mg PO Q6H PRN pain #5 tabs 07/03/24 Allergies Allergy/AdvReac Type Severity Reaction Status Date / Time Penicillins [PENICILLINS] AdvReac Unknown Rash Verified 07/03/24 11:30 Review of Systems Review of Systems ROS Unobtainable: All systems reviewed & are unremarkable except as noted in HPI and below Patient History Social History household members: none Smoking Status: Former smoker Smoking Status: Former smoker alcohol intake frequency: 0-2 drinks per day Substance Use Type: does not use Exam Narrative Exam Narrative: GENERAL: Alert and oriented x three, female in [id number] distress. HEENT: Head normocephalic, atraumatic, EOMI, pupils reactive, face symmetric, moist mucous membranes NECK: Supple, full range of motion CARDIOVASCULAR: Regular rate and rhythm without murmurs, rubs or gallops. RESPIRATORY: Breath sounds equal bilaterally, no wheezes rales or rhonchi. ABDOMEN: Soft, nontender. Normoactive bowel sounds all 4 quadrants. No guarding or rebound, rigidity, no mass : No CVA tenderness BACK: No cervical, thoracic or lumbar vertebral point tenderness. Patient reproducible pain over her left flank localized about a 2 cm area about 4 cm below the ribs. There is no fluctuance, there has no fluid collection, there is no area of bulge or deficit in the muscle. No mass or nodules. Patient does have a little bit of erythema but states she has had a heating pad that area. Patient has slightly decreased range of motion. She is uncomfortable with movement but able to roll over in the bed and get up on her own. Patient's gait is [antalgic/normal]. Rectal exam is deferred. Muscle strength is 5/5 in lower extremities. Dorsalis pedis and tibialis pulses are 2+ and lower extremities. Sensation is intact in the lower extremities. EXTREMITIES: Normal range of motion, no clubbing or edema. Neurovascularly intact NEUROLOGICAL: Cranial nerves II through XII grossly intact. Moving all extremities SKIN: Warm, dry, no petechiae, no rashes or lesions otherwise noted. Initial Vital Signs Initial Vital Signs: Vital Signs Temperature 98.4 F 07/03/24 11:30 Pulse Rate 74 07/03/24 11:30 Respiratory Rate 18 07/03/24 11:30 Blood Pressure 183/85 H 07/03/24 11:30 Pulse Oximetry 98 07/03/24 11:30 Oxygen Delivery Method Room Air 07/03/24 11:30 Course Orders Ordered: ED Orders 07/03/24 11:34 EKG-12 Lead Stat 07/03/24 11:44 Complete Blood Count AUTO DIFF Stat Comprehensive Metabolic Panel Stat Lipase Stat Discontinued Medications Diazepam (Diazepam 5 Mg Tablet) 5 mg PO NOW ONE Stop: 07/03/24 13:10 Last Admin: 07/03/24 13:15 Dose: 5 mg Documented By: SARAH Ketorolac Tromethamine (Ketorolac 30 Mg/Ml Vial) 15 mg IV NOW ONE Stop: 07/03/24 11:52 Last Admin: 07/03/24 11:55 Dose: 15 mg Documented By: PARADISE Ondansetron HCl (Ondansetron 4 Mg/2 Ml Inj) 4 mg IV NOW PRN PRN Reason: Nausea And Vomiting Ondansetron HCl (Ondansetron 4 Mg Odt) 4 mg PO NOW PRN PRN Reason: Nausea And Vomiting Vital Signs Vital signs: Vital Signs - 8 hr 07/03/24 11:30 07/03/24 12:39 07/03/24 12:41 Temperature 98.4 F Pulse Rate 74 58 L Respiratory Rate 18 Blood Pressure 183/85 H 175/73 H Pulse Oximetry 98 93 Oxygen Delivery Method Room Air 07/03/24 12:41 07/03/24 13:00 07/03/24 13:01 Temperature Pulse Rate 62 63 Respiratory Rate Blood Pressure 174/78 H Pulse Oximetry 93 92 Oxygen Delivery Method 07/03/24 13:01 Temperature Pulse Rate 57 L Respiratory Rate Blood Pressure Pulse Oximetry 94 Oxygen Delivery Method Room Air MDM - Back Pain/Injury Lab Data 07/03/24 11:44 07/03/24 11:44 Labs: Lab Results 07/03/24 Range/Units 11:44 WBC 6.7 (4.5-11.0) X10^3/uL RBC 4.56 (4.0-5.2) X10^6/uL Hgb 13.7 (12.0-16.0) g/dL Hct 40.7 (36-46) % MCV 89.3 (80-100) fL MCH 30.1 (26-34) PG MCHC 33.8 (30-36) % RDW 13.2 (11.6-14.8) % Plt Count 337 (150-400) X10^3/uL Neut % (Auto) 67.1 (50-75) % Lymph % (Auto) 23.8 L (25-40) % [place] % (Auto) 6.9 (3-14) % Eos % (Auto) 1.7 L (2-4) % Baso % (Auto) 0.5 (0-2) % Neut # (Auto) 4500 (0440-9264) /uL Lymph # (Auto) 1600 (5054-1721) /uL [place] # (Auto) 500 (0-900) /uL Eos # (Auto) 100 (0-450) /uL Baso # (Auto) 0 (0-100) /uL Sodium 137 (137-145) mmol/L Potassium 4.3 (3.4-5.1) mmol/L Chloride 105 (98-107) mmol/L Carbon Dioxide 24 (22-32) mmol/L BUN 14 (7-17) mg/dL Creatinine 0.93 (0.52-1.04) mg/dL Estimated GFR > 60 (>60) mL/min BUN/Creatinine Ratio 15.1 (6-22) Glucose 112 H (80-110) mg/dL Calcium 9.4 (8.4-10.2) mg/dL Total Bilirubin 0.7 (0.2-1.3) mg/dL AST 27 (14-36) IU/L ALT 23 (<35) IU/L Alkaline Phosphatase 82 (38-126) U/L Total Protein 7.9 (6.3-8.2) g/dL Albumin 4.5 (3.5-5.0) g/dL Globulin 3.4 (1.7-4.1) g/dL Albumin/Globulin Ratio 1.3 (1.0-2.8) Lipase 56 (23-300) U/L Urine Dip Bedside Urine Glucose Negative Bedside Urine Bilirubin - Negative Bedside Urine Ketone - Negative Urine Specific [place] 1.010 Bedside Urine Occult Blood - Negative Bedside Urine pH 6.0 Bedside Urine Protein - Negative Bedside Urine Urobilinogen - Negative Bedside Urine Nitrite - Negative Bedside Urine Leukocytes - Negative Esterase ECG Data Attestation: I personally reviewed and interpreted this ECG as follows: Interpretation: Sinus bradycardia rate of 54 NE 154 QRS 86 QTC 396. MDM Narrative Medical decision making narrative: 64-year-old female comes in with complaint of left flank pain does radiate a little bit to her midline. She is nontender over the vertebrae she has not area of reproducible pain that is about 2 cm and increased pain with movement. No clear signs of infection she is little bit red on her flank but states that is where her heating pad was until just shortly before evaluation. There is no fluctuance or fluid collection no obvious hernia, able to reproduce her pain. Discussed with patient we will give short course of pain medication and muscle relaxer as she has been quite physical lately. If she has any worsening symptoms she is return for evaluation. Urine shows no signs of infection or blood. Labs show white count of 6.7 hemoglobin of 13 platelets of 337. Chemistries are normal creatinine is 0.93 LFTs are negative. EKG shows sinus bradycardia. Discharge Plan Departure Patient Disposition: Home Clinical Impression: Flank pain Instructions: DI for Flank Pain Activity Restrictions/Additional Instructions: Please follow up if your symptoms are not improving throughout the week. You have an area of localized pain on your exam I suspect this is musculoskeletal in nature. You can take Tylenol up to a 1000 mg every 6 hours and/or ibuprofen up to 600 mg every 6 hours as needed for pain. Take 1 tablet antinausea medication every 6 hours as needed. You can take 1 tablet muscle relaxer every 8 hours as needed. This medication can make you sleepy do not drive, perform has a activities or make major decisions while taking it. Can also take 1 tablet every 6 hours of narcotic pain medication. This medication can make you sleepy do not drive, perform hazardous activities or make any major decisions while taking it. This medication will make you constipated please take a stool softener once to twice daily until stools are soft and regular. Prescription sent to [facility] in [place]. Please return for fevers, rapidly worsening pain, new loss of bowel or bladder control, difficulty with urination, numbness tingling or weakness in your extremities, new redness, swelling or skin changes, persistent vomiting, new abdominal pain or other new or concerning changes. Prescriptions: New diazepam [Valium] 5 mg tablet 5 mg PO TID PRN (Reason: muscle spasm) Qty: 10 0RF ondansetron 4 mg tablet,disintegrating 4 mg PO Q6H PRN (Reason: nausea and vomiting) Qty: 7 0RF oxycodone 5 mg tablet 5 mg PO Q6H PRN (Reason: pain) Qty: 5 0RF No Action ascorbic acid (vitamin C) 500 MG tablet 500 mg PO QDAY Qty: 0 lisinopril 10 MG tablet 20 mg PO QDAY Qty: 30 ibuprofen [Advil] 200 MG tablet 200 mg PO Q4HP PRN (Reason: Pain (Scale Score 1-3)) Qty: 0 VITAMIN D (Vitamin D3) tablet 1,000 units PO DAILY Qty: 0 hydrochlorothiazide 25 mg tablet 25 mg PO DAILY Referrals: Kerry Pagan ARNP [Primary Care Provider] - Stand Alone Forms: Patient Portal/API
[2024-07-03] MEDS: diazePAM 5 MG TABLET PO (13:15)
== END 2024-07-03 13:30 | disposition home or self-care (01) ==
PROVIDERS: Emergency Provider Emergency Medicine; PCP Internal Medicine
DX: R10.9 Unspecified abdominal pain (principal)
CPT/HCPCS: 36415; 80053; 81003; 83690; 85025; 93005; 96374; 99284; J1885